=== PATIENT | female | born 1990 | race Caucasian/White ===

== ENCOUNTER → 2016-07-08 | Outpatient (CLI) | payer MEDICAID ==
--- NOTE | 2016-07-08 11:48 | US ---
EXAMINATION TYPE: US OB <= 14 wk fetus DATE OF EXAM: 07/08/2016 10:46 AM COMPARISON: NONE CLINICAL HISTORY: Confirm Dates Z36. G1 EXAM PERFORMED: Transabdominal (TA) EXAM MEASUREMENTS: GESTATIONAL AGE / DATING Physician Established: (11 weeks/1 day) EDC: 01/26/2017 Dates by LMP: (11 weeks/1 day) EDC: 01/26/2017 Dates by First Scan: today Dates by Current Scan for: (9 weeks/1 day) EDC: 02/09/2017 MATERNAL ANATOMY Uterus: 12.0 x 7.8 x 6.0 Right Ovary: 4.0 x 2.8 x 2.4cm with CL of preganancy Left Ovary: 2.7 x 2.7 x 2.1cm Post CDS / Adnexa: wnl Presence of free fluid: no Presence of corpus luteal cyst: in right ovary = 2.2 x 1.7 x 1.3cm Presence of subchorionic bleed: no GESTATION / SURVEY CRL: 2.4cm (9 weeks/1 day) Yolk Sac (normal less than 6mm): 3.1mm Heart Rate: 170 bpm Rhythm: Normal IUP: Viable IUP Date of LMP: 04/21/2016 Beta HcG (if available): NA TECHNOLOGIST IMPRESSION: Single, live, IUP, 9 weeks/1 day) EDC: 02/09/2017, HR 170bpm. Single live intrauterine gestation is confirmed as gestational sac, yolk sac, and pole are iden tified. No free fluid is seen in pelvic cul-de-sac. Both ovaries are identified. Within right ovary there is 2.2 cm oval hypoechoic lesion with periphera l vascularity felt to reflect corpus luteal cyst. No suspicious extraovarian adnexal masses are noted . IMPRESSION: Single live intrauterine gestation is confirmed, mean crown-rump length is 2.4 cm corresponding to 9 week 1 day old fetus.
== END | disposition home or self-care (01) ==
LOC: RADUSWWP 10:17
PROVIDERS: ATTEND Obstetrics & Gynecology
DX: Z36 Encounter for antenatal screening of mother (principal); Z3A.09 9 weeks gestation of pregnancy
CPT/HCPCS: 76801

== ENCOUNTER 2016-07-13 18:27 | Emergency (ER) | payer MEDICAID ==
[2016-07-13 18:53] VITALS: TEMP 98
[2016-07-13] MEDS ORDERED: PYRIDOXINE 100 MG/ML 1 ML VIAL IVP STA (20:00)
[2016-07-13] MEDS ORDERED: diphenhydrAMINE 50 MG/ML 1 ML VIAL IVP STA (20:00)
[2016-07-13] MEDS ORDERED: SODIUM CHLORIDE 0.9% 1,000 ML IV ONE (20:00)
--- NOTE | 2016-07-13 20:03 | ED ---
General Adult HPI - General Chief complaint: Abdominal Pain Stated complaint: 10 WEEKS PREG AND VOMITING, DIARRHEA Time Seen by Provider: 07/13/16 19:49 Source: patient, RN notes reviewed Mode of arrival: ambulatory Limitations: no limitations - History of Present Illness Initial comments: Patient is a 26-year-old female presents to the emergency room for reevaluation nausea, vomiting or diarrhea. Patient states she about 10 weeks . Patient states yesterday she began feeling ill. Patient states all last night she was vomiting. Patient states she vomited twice throughout the day today. Patient also states she had a couple episodes of diarrhea last night and this morning. Patient states she still feeling nauseous. Patient states she wants to be sure she is not dehydrated. Patient denies abdominal pain. Patient denies history of abdominal surgeries. Patient denies vaginal bleeding. Patient denies any vaginal discomfort. Patient denies chest pain, shortness of breath, headache, dizziness, fevers, chills. - Related Data Home Medications Medication Instructions Recorded Confirmed Tbz-Qhup-Dcyvf Acid 1 cap PO DAILY 07/13/16 07/13/16 [-U Capsule (formulary)] Allergies Allergy/AdvReac Type Severity Reaction Status Date / Time sulfamethoxazole AdvReac Rash/Hives Verified 07/13/16 19:54 [From Bactrim] trimethoprim [From Bactrim] AdvReac Rash/Hives Verified 07/13/16 19:54 Review of Systems ROS Statement: Those systems with pertinent positive or pertinent negative responses have been documented in the HPI. ROS Other: All systems not noted in ROS Statement are negative. Past Medical History Past Medical History: No Reported History History of Any Multi-Drug Resistant Organisms: None Reported Past Surgical History: No Surgical Hx Reported Past Psychological History: No Psychological Hx Reported Smoking Status: Never smoker Past Alcohol Use History: None Reported Past Drug Use History: None Reported General Exam - General Exam Comments Initial Comments: Sitting in exam room in no acute distress. Limitations: no limitations General appearance: alert, in no apparent distress Head exam: Present: atraumatic, normocephalic, normal inspection Eye exam: Present: normal appearance ENT exam: Present: normal exam Neck exam: Present: normal inspection Respiratory exam: Present: normal lung sounds bilaterally. Absent: respiratory distress Cardiovascular Exam: Present: regular rate, normal rhythm, normal heart sounds GI/Abdominal exam: Present: soft, normal bowel sounds. Absent: distended, tenderness, guarding, rebound, rigid Extremities exam: Present: normal inspection Back exam: Present: normal inspection Neurological exam: Present: alert, oriented X3, CN II-XII intact, normal gait Psychiatric exam: Present: normal affect, normal mood Skin exam: Present: warm, dry, intact, normal color. Absent: rash Course Vital Signs 07/13/16 18:51 Temperature 98 F Pulse Rate 103 H Respiratory 20 Rate Blood Pressure 125/72 O2 Sat by Pulse 97 Oximetry Medical Decision Making - Medical Decision Making Patient is a 26-year-old female presents emergency room for evaluation nausea, vomiting and diarrhea. Patient is . Patient is about 10 weeks . Patient states she is feeling much better after fluids and medications given. Patient states she feels better and would like to be discharged home. Patient does have a confirmed IUP from 07/08/16. Patient states she will follow up with her MANAGER RADIO. Return parameters discussed. Case discussed with Dr. Echevarria. - Lab Data Result diagrams: 07/13/16 20:05 07/13/16 20:05 Lab Results 07/13/16 07/13/16 Range/Units 20:05 20:05 WBC 7.5 (3.8-10.6) k/uL RBC 4.48 (3.80-5.40) m/uL Hgb 12.6 (11.4-16.0) gm/dL Hct 38.1 (34.0-46.0) % MCV 85.0 (80.0-100.0) fL MCH 28.2 (25.0-35.0) pg MCHC 33.2 (31.0-37.0) g/dL RDW 12.6 (11.5-15.5) % Plt Count 240 (150-450) k/uL Neutrophils % 80 % Lymphocytes % 13 % Monocytes % 5 % Eosinophils % 0 % Basophils % 0 % Neutrophils # 6.0 (1.3-7.7) k/uL Lymphocytes # 1.0 (1.0-4.8) k/uL Monocytes # 0.3 (0-1.0) k/uL Eosinophils # 0.0 (0-0.7) k/uL Basophils # 0.0 (0-0.2) k/uL Sodium 136 L (137-145) mmol/L Potassium 4.7 (3.5-5.1) mmol/L Chloride 105 (98-107) mmol/L Carbon Dioxide 20 L (22-30) mmol/L Anion Gap 11 mmol/L BUN 7 (7-17) mg/dL Creatinine 0.44 L (0.52-1.04) mg/dL Est GFR (MDRD) Af Amer >60 (>60 ml/min/1.73 sqM) Est GFR (MDRD) Non-Af >60 (>60 ml/min/1.73 sqM) Glucose 93 (74-99) mg/dL Calcium 8.7 (8.4-10.2) mg/dL Magnesium 2.0 (1.6-2.3) mg/dL Total Bilirubin 0.9 (0.2-1.3) mg/dL AST 40 H (14-36) U/L ALT 26 (9-52) U/L Alkaline Phosphatase 36 L (38-126) U/L Total Protein 7.4 (6.3-8.2) g/dL Albumin 4.0 (3.5-5.0) g/dL Disposition Clinical Impression: Hyperemesis gravidarum Disposition: HOME SELF-CARE Condition: Good Instructions: Hyperemesis Gravidarum (ED) Additional Instructions: Drink plenty fluids. Please follow-up with MANAGER RADIO in 1-2 days for reevaluation. If any new symptom arises or symptoms worsen, return to ER as soon as possible. Referrals: Raudel Hanna MD [Primary Care Provider] - 1-2 days Time of Disposition: 20:56
[2016-07-13 20:20] LABS: Basophils % (A) 0 %; CH 28.9; CHCM 34.2; Eosinophils % (A) 0 %; HCT 38.1 % (34.0-46.0); HDW 2.31; HGB 12.6 gm/dL (11.4-16.0); Luc # (Auto) 0.17; Luc % (Auto) 2; Lymphocytes % (A) 13 %; MCH 28.2 pg (25.0-35.0); MCHC 33.2 g/dL (31.0-37.0); Mean Platelet Volume 6.9; Monocytes # (A) 0.3 k/uL (0-1.0); Monocytes % (A) 5 %; Neutrophils % (A) 80 %; RBC 4.48 m/uL (3.80-5.40); RDW 12.6 % (11.5-15.5); WBC 7.5 k/uL (3.8-10.6); WBC (Perox) 7.55
[2016-07-13 20:29] LABS: ALT 26 U/L (9-52); AST 40 U/L (14-36); Alkaline Phosphatase 36 U/L (38-126); Anion Gap 11 mmol/L; Blood Urea Nitrogen 7 mg/dL (7-17); Calcium 8.7 mg/dL (8.4-10.2); Carbon Dioxide 20 mmol/L (22-30); Chloride 105 mmol/L (98-107); Glucose 93 mg/dL (74-99); Non-African American GFR(MDRD) >60 (>60 ml/min/1.73 sqM); Sodium 136 mmol/L (137-145); Total Bilirubin 0.9 mg/dL (0.2-1.3); Total Protein 7.4 g/dL (6.3-8.2)
[2016-07-13 20:37] LABS: Potassium 4.7 mmol/L (3.5-5.1)
[2016-07-13 21:13] VITALS: BP 112/56; PULSE 80; RESP 16
== END 2016-07-13 21:12 | disposition home or self-care (01) ==
LOC: EC 18:27
DX: O21.0 Mild hyperemesis gravidarum (principal); Z88.1 Allergy status to other antibiotic agents; Z88.2 Allergy status to sulfonamides
CPT/HCPCS: 36415; 80053; 83735; 85025; 99284; 96374; 96375; 96361; J1200; J3415

== ENCOUNTER → 2016-07-14 | Outpatient (CLI) | payer MEDICAID ==
[2016-07-14 14:00] LABS: CH 29.1; HCT 36.9 % (34.0-46.0); HGB 12.5 gm/dL (11.4-16.0); MCHC 33.8 g/dL (31.0-37.0); Mean Platelet Volume 7.8; RBC 4.29 m/uL (3.80-5.40); RDW 12.6 % (11.5-15.5); WBC 5.5 k/uL (3.8-10.6)
[2016-07-14 14:24] LABS: Glucose 93 mg/dL (74-99); Non-African American GFR(MDRD) >60 (>60 ml/min/1.73 sqM)
[2016-07-14 14:55] LABS: Hepatitis B Surface Ag Index 0.07
[2016-07-15 07:10] LABS: HIV-1/HIV-2 Ab Screen NONREAC (NON REAC)
== END | disposition home or self-care (01) ==
LOC: LABWHC1 13:18
PROVIDERS: ATTEND Obstetrics & Gynecology
DX: Z34.01 Encounter for supervision of normal first pregnancy, first trimester (principal); R53.83 Other fatigue
CPT/HCPCS: 36415; 82565; 82947; 85027; 86762; 86780; 86850; 86900; 86901; 87340; 87389

== ENCOUNTER → 2016-09-16 | Outpatient (CLI) | payer MEDICAID ==
--- NOTE | 2016-09-16 13:35 | US ---
EXAMINATION TYPE: US OB anatomy transabd DATE OF EXAM: 09/16/2016 9:37 AM COMPARISON: NONE HISTORY: Large for dates Second Trimester 036.62X0 TECHNIQUE: OBTA EXAM MEASUREMENTS: GESTATIONAL AGE / DATING Physician Established: (19 weeks/1 days) EDC: 02/09/2017 Dates by LMP: (18 weeks/2 days) EDC: 02/03/2017 Dates by First Scan: (19 weeks/1 days) EDC: 02/09/2017 Dates by Current Scan for: (20 weeks/0 days) EDC: 02/03/2017 SURVEY IUP: Single PLACENTA: Anterior PREVIA: No previa DEANGELO: 13.5 cm Normal CERVICAL LENGTH (transabdominal: norm > 3.0cm): 3.2 cm BIOMETRY PRESENTATION: Vertex LIE: Longitudinal BPD: 4.5 cm 19 weeks / 5 days HC: 16.4 cm 19 weeks / 1 days AC: 14.6 cm 20 weeks / 0 days FL: 3.4 cm 20 weeks / 5 days ESTIMATED WEIGHT IN GRAMS: 334 grams ESTIMATED WEIGHT IN LBS/OZS: 0 lbs. 12 oz. WEIGHT PERCENTAGE BASED ON ESTABLISHED DATE: 93 % HC/AC: 1.1 Normal FL/AC: 23 Normal HEART RATE: 153 bpm RHYTHM: Normal ANATOMY SEEN (within normal limits): * Lateral Vent (< 1 cm) 0.4 cm * Cisterna Magna (< 1.1 cm) 0.3 cm * Nuchal Fold (< 0.6 cm) 0.2 cm * Cerebellum (varies with age) 1.9 cm Choroid Plexus (bilateral) Midline Falx Cavus Septi Pellucidi Four Chamber Heart Outflow tracts: LVOT/RVOT Stomach Situs Nose / Lips Diaphragm Kidneys (bilateral) Bladder Cord Insert Three Vessel Cord Arms (bilateral) Legs (bilateral) ANATOMY NOT SEEN:second tech check was CF Longitudinal Spine Transverse Spine Spine down - patient is coming back for additional images October 02 @ 1220 IMPRESSION: Single viable intrauterine corresponding to ultrasound age 20 weeks 0 days with estimated d ate of delivery 03 February 2017 by today's exam, limited survey
== END | disposition home or self-care (01) ==
LOC: RADUSWWP 08:49
PROVIDERS: ATTEND Obstetrics & Gynecology
DX: O36.62X0 Maternal care for excessive fetal growth, second trimester, not applicable or unspecified (principal); Z3A.19 19 weeks gestation of pregnancy
CPT/HCPCS: 76811

== ENCOUNTER → 2016-10-02 | Outpatient (CLI) | payer MEDICAID ==
--- NOTE | 2016-10-02 15:21 | US ---
EXAMINATION TYPE: US OB Call Back DATE OF EXAM: 10/02/2016 COMPARISON: Prior ultrasound September 16, 2016. CLINICAL HISTORY: OB CallBack. here to complete out anatomy scan; no issues per patient GESTATIONAL AGE / DATING Dates by Initial Survey Scan: (21 weeks/3 days) EDC: 02/09/2017 HEART RATE: 143 bpm RHYTHM: Normal ANATOMY SEEN (second anatomic survey look): Longitudinal Spine: Transverse Spine: Patient returned for long and trans spine imaging; appears wnl. Second Look imaging of the spine in 2 planes is felt within normal limits during real-time scanning a nd on still images saved IMPRESSION: As above
== END | disposition home or self-care (01) ==
LOC: RADUSWWP 12:16
PROVIDERS: ATTEND Obstetrics & Gynecology
DX: Z36 Encounter for antenatal screening of mother (principal); Z3A.21 21 weeks gestation of pregnancy

== ENCOUNTER → 2016-10-30 | Outpatient (CLI) | payer MEDICAID ==
[2016-10-30 10:07] LABS: CH 27.8; CHCM 33.2; HCT 37.2 % (34.0-46.0); HDW 2.38; HGB 12.9 gm/dL (11.4-16.0); MCH 29.2 pg (25.0-35.0); MCHC 34.7 g/dL (31.0-37.0); MCV 84.2 fL (80.0-100.0); Mean Platelet Volume 7.7; RBC 4.41 m/uL (3.80-5.40); RDW 13.3 % (11.5-15.5); WBC 10.3 k/uL (3.8-10.6)
== END | disposition home or self-care (01) ==
LOC: LABWHC1 08:53
PROVIDERS: ATTEND Obstetrics & Gynecology
DX: Z34.02 Encounter for supervision of normal first pregnancy, second trimester (principal)
CPT/HCPCS: 36415; 82950; 85027

== ENCOUNTER → 2016-11-05 | Outpatient (CLI) | payer MEDICAID ==
[2016-11-05 12:18] LABS: Glucose 3 Hour, Gest 97 mg/dL
== END | disposition home or self-care (01) ==
LOC: LABWHC1 08:01
PROVIDERS: ATTEND Obstetrics & Gynecology
DX: O24.419 Gestational diabetes mellitus in pregnancy, unspecified control (principal); Z3A.00 Weeks of gestation of pregnancy not specified
CPT/HCPCS: 36415; 82951; 82952

== ENCOUNTER → 2017-01-07 | Outpatient (CLI) | payer MEDICAID ==
--- NOTE | 2017-01-07 15:19 | US ---
EXAMINATION TYPE: US OB anatomy transabd DATE OF EXAM: 01/07/2017 COMPARISON: US HISTORY: Large for dates O36.63X0 LGA TECHNIQUE: Transabdominal (TA) EXAM MEASUREMENTS: GESTATIONAL AGE / DATING Physician Established: (35 weeks/2 days) EDC: 02/09/2017 Dates by LMP: (36 weeks/1 days) EDC: 02/03/2017 Dates by First Scan: (35 weeks/2 days) EDC: 02/09/2017 Dates by Current Scan for: (34 weeks/4 days) EDC: 02/14/2017 SURVEY IUP: Single PLACENTA: Anterior PREVIA: No previa DEANGELO: 10.6 cm Normal CERVICAL LENGTH (transabdominal: norm > 3.0cm): 3.0 cm BIOMETRY PRESENTATION: Vertex BPD: 8.5 cm 34 weeks / 2 days HC: 31.3 cm 35 weeks / 1 days AC: 31.4 cm 35 weeks / 2 days FL: 6.8 cm 34 weeks / 6 days ESTIMATED WEIGHT IN GRAMS: 2581 grams ESTIMATED WEIGHT IN LBS/OZS: 5 lbs. 11 oz. WEIGHT PERCENTAGE BASED ON ESTABLISHED DATE: 41 % HC/AC: 1.0 Normal FL/AC: 22 Normal HEART RATE: 137 bpm RHYTHM: Normal ANATOMY SEEN (within normal limits): * Lateral Vent (< 1 cm) 0.7 cm Midline Falx Cavus Septi Pellucidi Four Chamber Heart Stomach Situs Nose / Lips Diaphragm Kidneys (bilateral) Bladder Cord Insert Three Vessel Cord Longitudinal Spine Transverse Spine ANATOMY NOT SEEN: * Cisterna Magna (< 1.1 cm) cm * Nuchal Fold (< 0.6 cm) cm * Cerebellum (varies with age) cm Choroid Plexus (bilateral) Outflow tracts: LVOT/RVOT Arms (bilateral) Legs (bilateral) Single, viable IUP/ Growth parameters in 41st percentile, anatomy visualized appeared wnl IMPRESSION: Single, viable IUP/ Growth parameters in 41st percentile, anatomy visualized appeared wnl
== END | disposition home or self-care (01) ==
LOC: RADUSWWP 14:20
PROVIDERS: ATTEND Obstetrics & Gynecology
DX: O36.63X0 Maternal care for excessive fetal growth, third trimester, not applicable or unspecified (principal); Z3A.34 34 weeks gestation of pregnancy
CPT/HCPCS: 76811

== ENCOUNTER 2017-02-03 10:00 | Inpatient (IN) | payer MEDICAID ==
[2017-02-03 12:59] LABS: Basophils % (A) 0 %; CH 28.3; CHCM 32.5; Eosinophils # (A) 0.1 k/uL (0-0.7); Eosinophils % (A) 1 %; HCT 38.8 % (34.0-46.0); HDW 2.35; HGB 12.6 gm/dL (11.4-16.0); Luc # (Auto) 0.29; Luc % (Auto) 3; Lymphocytes # (A) 1.7 k/uL (1.0-4.8); Lymphocytes % (A) 17 %; MCH 28.5 pg (25.0-35.0); MCHC 32.5 g/dL (31.0-37.0); MCV 87.6 fL (80.0-100.0); Mean Platelet Volume 9.3; Monocytes # (A) 0.5 k/uL (0-1.0); Monocytes % (A) 5 %; Neutrophils # (A) 7.3 k/uL (1.3-7.7); Neutrophils % (A) 74 %; RBC 4.43 m/uL (3.80-5.40); RDW 14.2 % (11.5-15.5); WBC 9.8 k/uL (3.8-10.6); WBC (Perox) 10.29
[2017-02-03 13:14] LABS: ALT 42 U/L (9-52); AST 24 U/L (14-36); Blood Urea Nitrogen 5 mg/dL (7-17); LDH 337 U/L (313-618); Non-African American GFR(MDRD) >60 (>60 ml/min/1.73 sqM); Uric Acid 5.9 mg/dL (3.7-7.4)
[2017-02-03 13:33] LABS: Appearance,Urine Cloudy (Clear); Bacteria,Urine Rare /hpf; Bilirubin,Urine Negative (Negative); Glucose,Urine (UA) Negative (Negative); Ketones,Urine 1+ (Negative); Leukocyte Esterase,Urine Negative (Negative); Mucus,Urine Rare /hpf; Nitrite,Urine Negative (Negative); Particle Count 2242; Protein,Urine Negative (Negative); Specific Gravity,Urine 1.003 (1.001-1.035); Squamous Epithelial Cell,Urine 3 /hpf (0-4); UA Billing (MACRO vs. MICRO) MICRO; Urobilinogen,Urine <2.0 mg/dL (<2.0); WBC,Urine <1 /hpf (0-5)
[2017-02-03] MEDS ORDERED: DINOPROSTONE 10 MG INSERT.ER VAGINAL ONE (13:40)
[2017-02-03 14:47] VITALS: BMI 33.2
[2017-02-03] MEDS ORDERED: BUTORPHANOL 1 MG/ML 1 ML VIAL IV PRN ×2 (15:31→17:19)
[2017-02-03] MEDS ORDERED: ZOLPIDEM 5 MG TAB PO PRN (17:16)
--- NOTE | 2017-02-03 17:28 | P.HPOB ---
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 She was noted to be susan every couple minutes but also was noted to have some elevated blood pressures. She denies any headaches or blurry vision. She has noticed a little bit of dizziness. She has been having some significant swelling in her feet and her hands more recently. She denies any rupture of membranes. Her care has been uncomplicated up until this point. Her workup in triage was negative for preeclampsia. Urine protein was negative. All of her labs were is within normal limits. She did have blood pressures as high as 160s over 100s. labs: GC/chlamydia-negative HIV-nonreactive Random glucose-93 Hepatitis B surface antigen-negative The globe and-12.5 Syphilis antibody-nonreactive Rubella-low positive Blood type-AB+ Antibody screen-negative Obstetrical ultrasound-normal anatomy One hour Glucola-142 Three-hour Glucola-within normal limits Group B streptococcus-positive Obstetrical history: This is her first Gynecologic history: She does have a history of chlamydia treated in 2007 Social history: She works as an RN at [employer] Review of Systems Constitutional: Denies chills, Denies fever Eyes: denies blurred vision, denies pain Ears, nose, mouth and throat: Denies headache, Denies sore throat Cardiovascular: Denies chest pain, Denies shortness of breath Respiratory: Denies cough Gastrointestinal: Reports abdominal pain (Irregular contractions), Denies nausea , Denies vomiting Genitourinary: Reports pelvic pain, Reports Musculoskeletal: Reports low back pain Musculoskeletal: bilateral: ankle swelling, hand swelling Neurological: Denies numbness, Denies weakness Psychiatric: Denies anxiety, Denies depression Past Medical History Past Medical History: No Reported History History of Any Multi-Drug Resistant Organisms: None Reported, MRSA Date of last positivie culture/infection: 2007 MDRO Source:: left leg wound Additional Past Surgical History / Comment(s): pt states had sinus surgery in 2006 Past Psychological History: No Psychological Hx Reported Smoking Status: Former smoker Past Alcohol Use History: None Reported Past Drug Use History: None Reported - Past Family History Father History Unknown: Yes Family Medical History: Hypertension Medications and Allergies Home Medications Medication Instructions Recorded Confirmed Type Gvk-Bhrv-Ptori Acid 1 cap PO DAILY 07/13/16 02/03/17 History [-U Capsule (formulary)] Allergies Allergy/AdvReac Type Severity Reaction Status Date / Time sulfamethoxazole AdvReac Rash/Hives Verified 02/03/17 15:30 [From Bactrim] trimethoprim [From Bactrim] AdvReac Rash/Hives Verified 02/03/17 15:30 Exam Osteopathic Statement: *. No significant issues noted on an osteopathic structural exam other than those noted in the History and Physical/Consult. - Vital Signs Vital signs: Vital Signs Temp Pulse Resp BP 02/03/17 14:47 98.2 F 77 16 146/84 02/03/17 14:38 98.2 F 77 16 146/84 02/03/17 10:18 97 F L 81 18 155/87 Intake and Output 02/03/17 02/03/17 02/03/17 06:59 14:59 22:59 Other: # Voids 1 Weight 96.162 kg Patient Weight 02/04/17 06:59 Weight 96.162 kg HEENT: Within normal limits Heart: Regular rate and rhythm Lungs: Clear to auscultation bilaterally Abdomen: Cervix: Closed/70%/-2 station heart tones: Reactive Contractions: Every 2-3 minutes Extremities: 1-2+ pitting edema in her lower extremities and puffiness noted in her hands. Results Result Diagrams: 02/03/17 12:48 02/03/17 12:48 Abnormal Lab Results - Last 24 Hours (Table) 02/03/17 02/03/17 Range/Units 12:35 12:48 BUN 5 L (7-17) mg/dL Urine Appearance Cloudy H (Clear) Urine Ketones 1+ H (Negative) Urine Bacteria Rare H (None) /hpf Urine Mucus Rare H (None) /hpf Assessment and Plan (1) 39 weeks gestation of Status: Acute (2) Gestational hypertension affecting first Status: Acute Plan: Plan is admission for Cervidil cervical ripening followed by oxytocin induction of labor in the morning. Will monitor blood pressures through the night. If they are significantly high, will need to add antihypertensive.
[2017-02-03] MEDS ORDERED: AMPICILLIN 2,000 MG in SODIUM CHLORIDE 0.9% 100 ML IVPB STA (17:39)
[2017-02-03] MEDS ORDERED: ONDANSETRON 4 MG/2 ML VIAL IVP STA (19:36)
[2017-02-03] MEDS ORDERED: AMPICILLIN 1,000 MG in SODIUM CHLORIDE 0.9% 50 ML IVPB SCH (22:00)
[2017-02-04] MEDS: AMPICILLIN 1,000 MG in SODIUM CHLORIDE 0.9% 50 ML IVPB SCH ×4 (00:43→13:38)
[2017-02-04] MEDS ORDERED: OXYTOCIN 10 UNIT/ML 1 ML VIAL IM PRN (05:17)
[2017-02-04] MEDS ORDERED: METHYLERGONOVINE 0.2 MG/ML 1 ML AMP IM PRN (05:17)
[2017-02-04] MEDS ORDERED: LIDOCAINE 1% 20 ML VIAL (10MG/ML) FOR IV START INTRADERMA PRN (05:17)
[2017-02-04] MEDS ORDERED: OXYTOCIN 20 UNITS/1000 ML NS 1,000 ML IV SCH ×2 (05:17→13:44)
[2017-02-04] MEDS ORDERED: CARBOPROST TROMETHAMINE 250 MCG/ML 1 ML AMP IM PRN (05:17)
[2017-02-04] MEDS ORDERED: LIDOCAINE 1% (PF) 10 MG/ML (30 ML SDV) SQ PRN (05:17)
[2017-02-04] MEDS ORDERED: TERBUTALINE 1 MG/ML VIAL SQ PRN (05:17)
[2017-02-04] MEDS ORDERED: AMPICILLIN 2,000 MG in SODIUM CHLORIDE 0.9% 100 ML IVPB STA (05:19)
[2017-02-04] MEDS: LACTATED RINGERS 1,000 ML IV SCH ×2 (06:01→14:11)
--- NOTE | 2017-02-04 08:34 | P.PN ---
Progress Note - Text Progress Note Date: 02/04/17 The patient did well last night. She was feeling mild irregular contractions through the night. She did have a couple elevated blood pressures at around 2145 up to 191/89 but it came down on its own within a half an hour to 158/78. She denied any headaches or blurry vision. She did state she has been having nausea and some vomiting almost every night for the last week. Once she vomits she feels better in the symptoms go away. Currently she is feeling a little bit stronger contractions since the Pitocin has been started. Vital signs currently blood pressure is 145/93. Fundus is nontender. Cervix is closed/70%/ -2 station. Impression is intrauterine at 39-2/7 weeks, gestational hypertension. Plan is to continue with oxytocin this morning. Still no change in her cervix by noontime, may consider section at that time. We'll continue to monitor blood pressures closely.
--- NOTE | 2017-02-04 08:38 | P.MSEPDOC ---
Presenting Problems - Arrival Data Date of Arrival on Unit: 02/03/17 Time of Arrival on Unit: 14:18 Mode of Transport: Ambulatory - Complaint OB-Reason for Admission/Chief Complaint: Observation/Evaluation Comment: pt arrived c/o cramping and questionable labor. states shes working over on [employer] and had been having cramping they sent her over her for evulation Medical History - Information : 1 Para: 0 Term: 0 : 0 Abortions: Spontaneous or Elective: 0 Number of Living Children: 0 - Gestational Age Gestational Age by ELENA (wks/days): 39 Weeks and 1 Days - History Complications: GBS+ Review of Systems - Review of Systems Constitutional: No problems Breast: No problems ENT: No problems Cardiovascular: No problems Respiratory: No problems Gastrointestinal: No problems Genitourinary: No problems Musculoskeletal: No problems Neurological: No problems Skin: No problems Vital Signs - Temperature Temperature: 98.2 F Temperature Source: Oral - Pulse Right Brachial Pulse Rate: 77 Pulse Assessment Method: Automatic Cuff - Respirations Respiratory Rate: 16 Oxygen Delivery Method: Room Air - Blood Pressure Right Arm Blood Pressure: 146/84 Blood Pressure Mean: 104 Blood Pressure Source: Automatic Cuff Medical Screen Scoring (Pre) - Cervical Exam Dilation: 0 cm = 0 Membranes: Intact - Uterine Contractions Frequency: > or = 36 weeks =2 Duration: > 40 seconds = 2 Intensity: N/A - Maternal Vital Signs Maternal Temperature: N/A Maternal Blood Pressure: Systolic >139 = 2 Signs of Preeclampsia: N/A Maternal Respirations: N/A - Maternal Trauma Maternal Trauma: N/A - Assessment Baseline FHR: 130 Heart Rate - NICHD Category: Category I (Normal) = 0 NST: Reactive Position: N/A Station: N/A - Total Score Total Score (Pre): 6 Physician Notification (Post) - Physician Notified Physician Notified Date: 02/03/17 Physician Notified Time: 11:50 Physician/Practitioner Notified:: dr fry Spoke With: dr fry New Order Received: Yes - Notification Comment Comment: pt admitted for cervidel tonight and induction in am Disposition - Disposition OB Disposition: Admit Transferred to:: st 10 I agree with the RN Medical Screening Exam: Yes Risk & Benefit of care provided described in d/c instruction: Yes Diagnosis: GESTATIONAL HTN W/O SIGNIFICANT PROTEINURIA, THIRD TRIMESTER
[2017-02-04] MEDS ORDERED: AMPICILLIN 1,000 MG in SODIUM CHLORIDE 0.9% 50 ML IVPB SCH (10:00)
[2017-02-04] MEDS ORDERED: ceFAZolin 2 GM in SODIUM CHLORIDE 0.9% 100 ML IVPB ONE (11:55)
[2017-02-04] MEDS ORDERED: CITRIC ACID-SODIUM CITRATE 15 ML CUP PO ONE (11:55)
[2017-02-04 12:10] LABS: INR 0.9 (<1.2); Partial Thromboplastin Time 22.6 sec (22.0-30.0); Prothrombin Time 9.5 sec (9.0-12.0)
[2017-02-04] MEDS ORDERED: NALBUPHINE 10 MG/ML AMPUL ONE (12:18)
[2017-02-04] MEDS ORDERED: OXYTOCIN 10 UNIT/ML 1 ML VIAL ONE (12:18)
[2017-02-04] MEDS ORDERED: KETOROLAC 30 MG/ML 1 ML VIAL ONE ×2 (12:18)
--- NOTE | 2017-02-04 13:10 | P.OP ---
Date of Procedure: 02/04/17 Preoperative Diagnosis: 1. Intrauterine at 39-2/7 weeks. 2. Failure to progress. 3. Gestational hypertension without proteinuria. Postoperative Diagnosis: Same Procedure(s) Performed: Primary low transverse section Anesthesia: spinal (Duramorph) Surgeon: Ce Anderson Loading Manager #1: Lina Akhtar Estimated Blood Loss (ml): 600 Pathology: other (Placenta) Condition: stable Disposition: floor Indications for Procedure: This is a 26 year old female 1 para 0 who initially presented at 39 and one sevenths weeks with complaints of contractions. In triage she was noted to be susan however her blood pressures were elevated. Labs were drawn and urine protein was negative. All lab work was normal. She did have blood pressures that would occasionally be high and then come back to normal. In light of this finding she was admitted for Cervidil cervical ripening followed by oxytocin induction of labor. She underwent Cervidil cervical ripening last night and no change in her cervix was noted this morning. She was started on oxytocin and continued for approximately 4 hours with no change in her cervix. At this point the decision was made to proceed with section secondary to failure to progress. She has had isolated elevated blood pressures but they have returned to baseline without any medication. I have discussed the risks, benefits, and alternative therapies for the above- mentioned procedure and for both sedation/anesthesia as well as necessary blood products administration, if indicated, as they pertain to this patient. The patient has indicated her understanding and acceptance of the risks and procedures discussed. Operative Findings: A viable female is noted in the vertex presentation with scores of 8 at 1 minute and 9 at 5 minutes and infant weight of 7 lbs. 4 oz. Nuchal cord times one was noted and thin meconium was noted. Normal uterus tubes and ovaries are noted. Description of Procedure: The patient is taken to the operating room where she is placed in the dorsal supine position with leftward tilt after spinal Duramorph anesthesia is given. She is prepped and draped in the normal sterile fashion. Skin was tested and found to be adequately anesthetized. A Pfannenstiel skin incision was made with a scalpel. A second knife was used to carry the incision down to the underlying layer of fascia. The fascia was nicked in the midline with a scalpel and then extended laterally bilaterally with Wallis scissors. The anterior lip of the fascia was grasped with 2 Isabel clamps and then dissected off the underlying rectus muscle in the midline with Wallis scissors. The inferior aspect of the fascial incision was grasped with 2 Isabel clamps and dissected off the underlying rectus muscle and the midline with Wallis scissors. Next the peritoneum layer was tented up with 2 hemostats and then entered sharply with the scalpel. The incision is extended superiorly and inferiorly with Metzenbaum scissors. Next a DeLee retractor is placed. The vesicouterine peritoneum is entered sharply with Metzenbaum scissors and extended laterally bilaterally with Metzenbaum scissors and then the bladder flap is pushed inferiorly. The lower uterine segment is incised in transverse fashion with the scalpel and then bluntly entered with a hemostat. Thin meconium fluid is noted. The incision was then extended laterally bilaterally with 2 fingers. Next the infant's head is delivered through the incision. Nose and mouth are bulb suctioned. The remainder of the infant is easily delivered and placed on mother's abdomen. Cord is clamped and cut. Infant is taken to warmer by nursing staff. Uterine fundus is gently massaged and placenta is delivered manually. Uterus is exteriorized and cleared of all clots and debris. Uterine incision is closed with 0 Vicryl suture in a running locked fashion. A second layer of 0 Vicryl suture is used in a running fashion for hemostasis. Once adequate hemostasis as assured, the vesicouterine peritoneum is reapproximated with 2-0 Vicryl suture in a running fashion. Posterior cul-de-sac is suctioned of all clots and debris. Uterus is returned to the abdomen. Incision is noted to be hemostatic. Peritoneal layer is closed with 0 Vicryl suture in a running fashion. Muscle layer is reapproximated with 0 Vicryl suture in interrupted fashion. Fascia layer is then closed with 0 PDS suture with 2 sutures meeting in the midline and the knots buried in either side and in the midline. The subcutaneous tissue was then closed with 2-0 Vicryl suture. Skin layer was then closed with edgar. All sponge and needle counts are correct. The patient is taken to recovery room in stable condition.
[2017-02-04] MEDS ORDERED: Acetaminophen-Codeine 300-30mg TAB PO PRN (13:44)
[2017-02-04] MEDS ORDERED: NALOXONE 0.4 MG/ML 1 ML VIAL IV PRN (13:44)
[2017-02-04] MEDS ORDERED: ZOLPIDEM 5 MG TAB PO PRN (13:44)
[2017-02-04] MEDS ORDERED: diphenhydrAMINE 50 MG CAP PO PRN (13:44)
[2017-02-04] MEDS ORDERED: diphenhydrAMINE 50 MG/ML 1 ML VIAL IVP PRN ×2 (13:44)
[2017-02-04] MEDS ORDERED: MEASLES-MUMPS-RUBELLA VACC/PF 12,500 UNIT/0.5 ML VIAL SQ ONE (13:44)
[2017-02-04] MEDS ORDERED: ACETAMINOPHEN TAB 325 MG TAB PO PRN (13:44)
[2017-02-04] MEDS ORDERED: ONDANSETRON 4 MG/2 ML VIAL IVP PRN (13:44)
[2017-02-04] MEDS ORDERED: diphenhydrAMINE 25 MG CAP PO PRN (13:44)
[2017-02-04] MEDS ORDERED: METOCLOPRAMIDE 5 MG/ML 2 ML VIAL IVP PRN (13:44)
[2017-02-04] MEDS ORDERED: LANOLIN CREAM 5 GM TUBE TOPICAL PRN (13:44)
[2017-02-04] MEDS ORDERED: LACTATED RINGERS 1,000 ML IV SCH (13:44)
[2017-02-04] MEDS: KETOROLAC 30 MG/ML 1 ML VIAL IVP PRN (17:52)
[2017-02-04] MEDS: SENNOSIDES-DOCUSATE SODIUM 1 EACH TAB PO SCH (20:08)
[2017-02-05] MEDS: KETOROLAC 30 MG/ML 1 ML VIAL IVP PRN ×3 (00:12→12:24)
[2017-02-05 06:22] LABS: Basophils % (A) 0 %; CH 29.3; CHCM 34.1; Eosinophils # (A) 0.1 k/uL (0-0.7); Eosinophils % (A) 1 %; HCT 34.3 % (34.0-46.0); HDW 2.36; HGB 11.3 gm/dL (11.4-16.0); Luc # (Auto) 0.28; Luc % (Auto) 2; Lymphocytes # (A) 1.7 k/uL (1.0-4.8); Lymphocytes % (A) 13 %; MCH 28.4 pg (25.0-35.0); MCHC 32.9 g/dL (31.0-37.0); MCV 86.4 fL (80.0-100.0); Mean Platelet Volume 11.1; Monocytes # (A) 0.7 k/uL (0-1.0); Monocytes % (A) 5 %; Neutrophils % (A) 79 %; RBC 3.97 m/uL (3.80-5.40); RDW 15.4 % (11.5-15.5); WBC 12.8 k/uL (3.8-10.6); WBC (Perox) 12.69
[2017-02-05] MEDS: SENNOSIDES-DOCUSATE SODIUM 1 EACH TAB PO SCH ×2 (07:42→22:55)
--- NOTE | 2017-02-05 10:03 | P.PN ---
Progress Note - Text Date: 02/05/2017 Time: 706 The patient is status post section Vital signs stable VAS: 0-10 Patient has no complaints of pain. The patient incurred some minimal itching yesterday, this itching is now subsiding. Pain meds to be managed by service.
--- NOTE | 2017-02-05 10:24 | P.PNOBGPC ---
Subjective - Subjective Principal diagnosis: Status post primary section postoperative day #1 Interval history: Patient is doing well. She is ambulating. She is passing flatus but no bowel movement yet. She has urinated. She is attempting to breast-feed. Lochia is decreasing. Patient reports: Reports appetite normal, Reports voiding normally, Reports pain well controlled, Reports ambulating normally [place]: doing well Objective - Vital Signs Latest vital signs: Vital Signs Temp Pulse Resp BP Pulse Ox 02/05/17 07:47 98.3 F 81 16 124/83 02/05/17 04:00 98.4 F 85 13 138/78 02/05/17 00:00 98.4 F 75 15 134/77 02/04/17 20:10 98.0 F 83 15 141/95 96 02/04/17 16:00 98.4 F 74 14 138/83 97 02/04/17 15:07 97.6 F 64 14 131/84 98 02/04/17 14:37 64 14 134/70 98 02/04/17 14:07 61 14 126/63 97 02/04/17 13:54 53 L 14 124/59 96 02/04/17 13:39 56 L 14 125/60 96 02/04/17 13:25 59 L 14 130/59 96 02/04/17 13:07 97.2 F L 64 16 123/69 98 Intake and Output 02/04/17 02/05/17 02/05/17 22:59 06:59 14:59 Intake Total 1000 Output Total 900 350 Balance 1000 -900 -350 Intake: Intake, IV Titration 1000 Amount Oxytocin 20 Units/1000 ml 1000 Ns 1,000 ml @ Per Protocol IV .Q0M [facility] Rx#: [id number] Output: Urine 900 350 Uretheral (Bell) 650 Other: # Voids 1 1 - Exam Extremities: Present: normal. Absent: tenderness Abdomen: Present: normal appearance, soft (Positive bowel sounds 4). Absent: distention, tenderness Incision: Present: normal, dry, intact. Absent: erythematous - Labs Labs: Abnormal Lab Results - Last 24 Hours (Table) 02/05/17 Range/Units 06:10 WBC 12.8 H (3.8-10.6) k/uL Hgb 11.3 L (11.4-16.0) gm/dL Neutrophils # 10.0 H (1.3-7.7) k/uL Assessment and Plan (1) 39 weeks gestation of Current Visit: Yes Status: Acute Code(s): Z3A.39 - 39 WEEKS GESTATION OF SNOMED Code(s): 51355541 (2) Gestational hypertension affecting first Current Visit: Yes Status: Acute Code(s): O13.9 - GESTATIONAL HTN W/O SIGNIFICANT PROTEINURIA, UNSP TRIMESTER SNOMED Code(s): 31864269 (3) delivery delivered Narrative/Plan: Impression is status post primary section postoperative day #1. Plan is to continue with postoperative and care. Her blood pressures have come down into the normal range since her . Current Visit: Yes Status: Acute Code(s): O82 - ENCOUNTER FOR DELIVERY WITHOUT INDICATION SNOMED Code(s): 867916074
[2017-02-05] MEDS: IBUPROFEN 600 MG TAB PO PRN (18:25)
[2017-02-06] MEDS: IBUPROFEN 600 MG TAB PO PRN ×3 (00:21→12:29)
[2017-02-06] MEDS: Acetaminophen-Codeine 300-30mg TAB PO PRN ×2 (02:57→08:05)
[2017-02-06] MEDS: SENNOSIDES-DOCUSATE SODIUM 1 EACH TAB PO SCH (08:08)
--- NOTE | 2017-02-06 08:38 | P.DS ---
Providers Date of admission: 02/03/17 13:35 Expected date of discharge: 02/06/17 Attending physician: Ce Anderson Primary care physician: Stated None - Discharge Diagnosis(es) (1) 39 weeks gestation of Current Visit: Yes Status: Acute (2) Gestational hypertension affecting first Current Visit: Yes Status: Acute (3) delivery delivered Current Visit: Yes Status: Acute Hospital Course: This is a 26-year-old female 1 para 0 at 39 and one sevenths weeks who initially presented with contractions and was found to have elevated blood pressures. Preeclampsia workup was negative however she continued to have isolated elevated blood pressures. Therefore she was admitted for induction of labor. She underwent Cervidil cervical ripening which as not successful. She then underwent oxytocin induction of labor for approximately 4-5 hours with no change in cervix. Therefore the decision was made to proceed with primary section. She underwent a primary low transverse section on and delivered a viable female infant with scores of 8 at 1 minute and 9 at 5 minutes and weight of 7 lbs. 4 oz. Her post operative course has been essentially uncomplicated. She is passing flatus but no bowel movement yet. Her pain is fairly well controlled with ibuprofen and Tylenol 3. She is breast-feeding. Lochia is decreasing. Her blood pressures normalized after delivery. She has no other symptoms of preeclampsia. Vital signs are stable. Abdomen is soft with positive bowel sounds 4. Incision is clean and dry and intact. Extremities show negative Homans. Impression is status post primary section postoperative day #2. Plan is to discharge home today. Routine postoperative and instructions are given. She will be given prescriptions for ibuprofen, Tylenol 3, and a breast pump. Kristin will be removed and Steri-Strips placed prior to discharge. She is advised to follow up in the office in approximately 1 week for a postoperative check and in 6 weeks for a check. She is advised to call the office if she has any further questions or concerns prior to her appointment time. Procedures: Cervidil cervical ripening Oxytocin induction of labor Primary low transverse section on 02/04/2017 Patient Condition at Discharge: Stable Plan - Discharge Summary New Discharge Prescriptions: New Acetaminophen-Codeine 300-30mg [Tylenol w/codeine #3] 1 each PO Q4HR PRN #30 tab PRN Reason: Mild Pain Ibuprofen [Motrin] 600 mg PO Q6HR PRN #60 tab PRN Reason: Mild Pain Or Fever >= 100.5 Continue Sna-Xkph-Zkwtt Acid [-U Capsule (formulary)] 1 cap PO DAILY Discharge Medication List Vof-Pzdd-Dkpax Acid [-U Capsule (formulary)] 1 cap PO DAILY [History] Acetaminophen-Codeine 300-30mg [Tylenol w/codeine #3] 1 each PO Q4HR PRN #30 tab 02/06/17 [Rx] Ibuprofen [Motrin] 600 mg PO Q6HR PRN #60 tab 02/06/17 [Rx] Follow up Appointment(s)/Referral(s): Ce Anderson DO [Doctor of Osteopathic Medicine] - 1 Week Activity/Diet/Wound Care/Special Instructions: Instructions 1. Do not begin any exercise program for 3 weeks. 2. Do not resume sexual relations for 3 weeks or longer if uncomfortable. 3. You may take tub baths or showers at any time. 4. You may use tampons if desired after 3 weeks. 5. Keep the area of episiotomy (stitches) clean and dry. 6. If you are not nursing, wear a good fitting, supportive bra during the day and limit fluid intake for at least 1 week to prevent breast engorgement. 7. Call the office, [phone], within the next week to make appointment for your 6 week checkup if it has not already been made. 8. Report any of the following occurrences to the doctor promptly: a. Heavy, excessive bleeding b. Chills, fever c. Burning or frequency of urination d. Pain or redness and breasts if nursing e. Increasing pain or swelling in episiotomy (stitches). In addition to the above instructions, the following additional should be followed: 1. No heavy lifting or straining (exercising) until after 6 week checkup. 2. Keep abdominal incision clean and dry: You may wear a dressing if more comfortable. 3. Make office appointment for 10 days after going home or as instructed by her doctor. Discharge Disposition: HOME SELF-CARE
[2017-02-06 10:34] VITALS: RESP 20
[2017-02-06 10:35] VITALS: BP 138/83; PULSE 72; TEMP 97.9
== END 2017-02-06 12:50 | disposition home or self-care (01) | DRG 766 ==
LOC: FBPOP 10:00 → 4FBP 13:35
PROVIDERS: ADMIT Obstetrics & Gynecology; ATTEND Obstetrics & Gynecology
PROC: 3E0P7GC Introduction of Other Therapeutic Substance into Female Reproductive, Via Natural or Artificial Opening (ICD-10-PCS; 2017-02-04)
PROC: 3E033VJ Introduction of Other Hormone into Peripheral Vein, Percutaneous Approach (ICD-10-PCS; 2017-02-04)
PROC: 10D00Z1 Extraction of Products of Conception, Low, Open Approach (ICD-10-PCS; principal; 2017-02-04 12:35)
DX: O13.4 Gestational [pregnancy-induced] hypertension without significant proteinuria, complicating childbirth (principal); O77.0 Labor and delivery complicated by meconium in amniotic fluid; O69.81X0 Labor and delivery complicated by cord around neck, without compression, not applicable or unspecified; O62.2 Other uterine inertia; Z37.0 Single live birth; Z3A.39 39 weeks gestation of pregnancy; Z87.891 Personal history of nicotine dependence; Z88.1 Allergy status to other antibiotic agents; Z88.2 Allergy status to sulfonamides; Z82.49 Family history of ischemic heart disease and other diseases of the circulatory system
CPT/HCPCS: 59025; 81001; 82565; 83615; 84450; 84460; 84520; 84550; 85025; 85610; 85730; 88307; 90707; 99215

== ENCOUNTER → 2019-09-13 | Outpatient (CLI) | payer MEDICAID | END | disposition home or self-care (01) | LOC: LABWHC1 07:07 | PROVIDERS: ATTEND Pediatrics Pediatric Infectious Diseases | DX: U07.1 COVID-19 (principal) | CPT/HCPCS: 87635 ==

== ENCOUNTER → 2019-10-28 | Outpatient (CLI) | payer MEDICAID ==
--- NOTE | 2019-11-02 16:01 | ECHOF ---
Referral Reason:R94.31 Abn EKG MEASUREMENTS -------- HEIGHT: 170.2 cm WEIGHT: 83.9 kg BP: RVIDd: 2.8 cm (< 3.3) IVSd: 1.1 cm (0.6 - 1.1) LVIDd: 4.4 cm (3.9 - 5.3) LVPWd: 1.2 cm (0.6 - 1.1) IVSs: 1.1 cm LVIDs: 3.2 cm LVPWs: 1.5 cm LA Diam: 3.5 cm (2.7 - 3.8) LAESV Index (A-L): 26.99 ml/m Ao Diam: 2.8 cm (2.0 - 3.7) AV Cusp: 2.1 cm (1.5 - 2.6) LA Diam: 3.5 cm (2.7 - 3.8) MV EXCURSION: 16.594 mm (> 18.000) MV EF SLOPE: 120 mm/s (70 - 150) EPSS: 0.7 cm MV E Madi: 0.68 m/s MV DecT: 110 ms MV A Madi: 0.56 m/s MV E/A Ratio: 1.22 RAP: 5.00 mmHg RVSP: 18.11 mmHg FINDINGS -------- Sinus rhythm. This was a technically good study. LV size, wall thickness and systolic function are normal, with an EF greater than 55%. The left loren tricular size is normal. The right ventricle is normal in size. The left atrial size is normal. The right atrial size is normal. The aortic valve is trileaflet, and appears structurally normal. No aortic stenosis or regurgitation. Mild mitral regurgitation is present. Mild tricuspid regurgitation present. Right ventricular systolic pressure is normal at < 35 mmHg. There is no pulmonic regurgitation present. The aortic root size is normal. There is no pericardial effusion. CONCLUSIONS -------- 1. Sinus rhythm. 2. This was a technically good study. 3. LV size, wall thickness and systolic function are normal, with an EF greater than 55%. 4. The left ventricular size is normal. 5. The right ventricle is normal in size. 6. The left atrial size is normal. 7. The right atrial size is normal. 8. The aortic valve is trileaflet, and appears structurally normal. No aortic stenosis or regurgitati on. 9. Mild mitral regurgitation is present. 10. Mild tricuspid regurgitation present. 11. Right ventricular systolic pressure is normal at < 35 mmHg. 12. There is no pulmonic regurgitation present. 13. The aortic root size is normal. 14. There is no pericardial effusion. [employer] OPERATOR: Georgie Claros RDCS
== END | disposition home or self-care (01) ==
LOC: RADECHMAIN 13:30
PROVIDERS: ATTEND Internal Medicine
DX: I08.1 Rheumatic disorders of both mitral and tricuspid valves (principal)
CPT/HCPCS: 93306

== ENCOUNTER → 2020-02-16 | Outpatient (CLI) | payer MEDICAID ==
--- NOTE | 2020-02-16 18:42 | US ---
EXAMINATION TYPE: US pelvic complete DATE OF EXAM: 02/16/2020 COMPARISON: NONE CLINICAL HISTORY: 29-year-old female R10.2 PELVIC PAIN. Pelvic cramping, irregular menses TECHNIQUE: Transabdominal (TA). Date of LMP: 02/07/20, prior 12/13/19 TECHNIQUE: EXAM MEASUREMENTS: Uterus: 10.2 x 3.5 x 4.8 cm Endometrial Stripe: 0.9 cm Right Ovary: 5.1 x 2.7 x 3.0 cm Left Ovary: 3.7 x 2.4 x 3.6 cm 1. Uterus: Anteverted and otherwise wnl 2. Endometrium: wnl 3. Right Ovary: hypoechoic area = 2.8 x 1.7 x 2.3cm 4. Left Ovary: dominant follicle = 2.3cm 5. Bilateral Adnexa: wnl 6. Posterior cul-de-sac: wnl IMPRESSION: 1. A 2.3 cm dominant follicle in the left ovary. 2. A 2.8 cm hypoechoic area within the right ovary could represent a corpus luteum or hemorrhagic cys t. 3. No pelvic free fluid.
== END | disposition home or self-care (01) ==
LOC: RADUSWWP 15:38
PROVIDERS: ATTEND Obstetrics & Gynecology
DX: R93.89 Abnormal findings on diagnostic imaging of other specified body structures (principal); R10.2 Pelvic and perineal pain
CPT/HCPCS: 76856

== ENCOUNTER → 2021-04-02 | Outpatient (CLI) | payer MEDICAID ==
--- NOTE | 2021-04-02 11:23 | US ---
EXAMINATION TYPE: Transabdominal DATE OF EXAM: 04/02/2021 9:28 AM COMPARISON: NONE CLINICAL HISTORY: Z36.89 Confirm viability and gestational age. LMP unknown. EXAM PERFORMED: Transabdominal (TA) EXAM MEASUREMENTS: GESTATIONAL AGE / DATING Physician Established: EDC: Unknown Dates by LMP: EDC: Unknown Dates by First Scan: No previous this is first scan (9 weeks/1 days) EDC: 11/04/2021 MATERNAL ANATOMY Uterus: 14.1 x 6.9 x 7.9 cm; WNL Right Ovary: 4.0 x 3.2 x 2.4 cm; WNL Left Ovary: 3.0 x 2.7 x 2.0 cm; WNL Post CDS / Adnexa: WNL Presence of free fluid: No Presence of subchorionic bleed: No GESTATION / SURVEY CRL: 19.72 mm (8 weeks/4 days) MSD: 4.01 cm (9 weeks/5 days) Yolk Sac (normal less than 6mm): 0.31 cm Heart Rate: 165 bpm Rhythm: Normal IUP: Viable IUP Age Appropriate Anatomy Cord Insertion: Too early to visualize Limbs: Too early to visualize Calvarium: Too early to visualize Date of LMP: Unknown per patient Beta HcG (if available): Not available at this time Single live intrauterine gestation is seen as gestational sac, yolk sac, and pole are all ident ified. No free fluid in the pelvic cul-de-sac. Both ovaries seen. No suspicious extra ovarian adnexal lesions are present. IMPRESSION: Single live intrauterine gestation is confirmed, mean crown-rump length is 2.0 cm corresp onding to 8 week 4 day old fetus.
== END | disposition home or self-care (01) ==
LOC: RADUSWWP 08:58
PROVIDERS: ATTEND Obstetrics & Gynecology
DX: Z34.91 Encounter for supervision of normal pregnancy, unspecified, first trimester (principal); Z3A.08 8 weeks gestation of pregnancy
CPT/HCPCS: 76801

== ENCOUNTER → 2021-04-12 | Outpatient (CLI) | payer MEDICAID ==
[2021-04-12 18:34] LABS: HCT 37.7 % (37.2-46.3); HGB 12.2 g/dL (12.0-15.0); MCH 28.2 pg (27.0-32.0); MCHC 32.4 g/dL (32.0-37.0); MCV 87.3 fL (80.0-97.0); Mean Platelet Volume 10.7 fL (9.5-12.2); Platelet Count 297 X 10*3/uL (140-440); RBC 4.32 X 10*6/uL (4.10-5.20); RDW 12.8 % (11.5-14.5); WBC 7.09 X 10*3/uL (4.50-10.00)
[2021-04-13 00:34] LABS: African American GFR (CKD) 147.2 (60.0-200.0)
[2021-04-13 00:44] LABS: Hepatitis B Surface Antigen Nonreactive (Nonreactive)
[2021-04-13 07:08] LABS: HIV 2 AB Non-Reactive (Non-Reactive); HIV AB P24 Non-Reactive (Non-Reactive); HIV P24 AG Non-Reactive (Non-Reactive)
== END | disposition home or self-care (01) ==
LOC: LABWHC1 12:24
PROVIDERS: ATTEND Obstetrics & Gynecology
DX: Z34.81 Encounter for supervision of other normal pregnancy, first trimester (principal)
CPT/HCPCS: 36415; 82565; 82947; 85027; 86762; 86780; 86850; 86900; 86901; 87340; 87390

== ENCOUNTER → 2021-06-13 | Outpatient (CLI) | payer MEDICAID ==
--- NOTE | 2021-06-13 16:33 | US ---
EXAMINATION TYPE: US OB anatomy transabd DATE OF EXAM: 06/13/2021 COMPARISON: NONE HISTORY: 31-year-old female O36.62X0 Large for dates TECHNIQUE: Transabdominal (TA) EXAM MEASUREMENTS: GESTATIONAL AGE / DATING Physician Established: (18 weeks/6 days) EDC: 11/08/2021 Dates by First Scan: (19 weeks/3 days) EDC: 11/04/2021 Dates by Current Scan for: (18 weeks/5 days) (5 days less growth than expected compared to 04/02/2021 ) EDC: 11/09/2021 SURVEY IUP: Single PLACENTA: Posterior PREVIA: Low Lying (approximately 3.0 - 3.5 cm from the internal cervical os). DEANGELO: 12.78 cm Normal CERVICAL LENGTH (transabdominal: norm > 3.0cm): 3.6 cm BIOMETRY PRESENTATION: Variable LIE: Variable BPD: 4.22 cm 18 weeks / 5 days HC: 15.93 cm 18 weeks / 5 days AC: 13.98 cm 19 weeks / 3 days FL: 2.84 cm 18 weeks / 5 days ESTIMATED WEIGHT IN GRAMS: 269.49 grams ESTIMATED WEIGHT IN LBS/OZ: lbs. 10 oz. WEIGHT PERCENTAGE BASED ON ESTABLISHED DATE: 55.3 % HC/AC: 1.14 Normal FL/AC: 20.28 Normal HEART RATE: 132 bpm RHYTHM: Normal ANATOMY SEEN (within normal limits): Lateral Vent (< 1 cm) 0.8 cm Cisterna Magna (< 1.1 cm) 0.6 cm Nuchal Fold (< 0.6 cm) 0.3 cm Cerebellum (varies with age) 1.9 cm Choroid Plexus (bilateral) Midline Falx Cavus Septi Pellucidi Outflow tract: RVOT Stomach Situs Nose / Lips Diaphragm Kidneys (bilateral) Bladder Three Vessel Cord Longitudinal Spine Transverse Spine Arms (bilateral) Legs (bilateral) ANATOMY SUBOPTIMALLY ASSESSED: Outflow tract: LVOT Four Chamber Heart Cord Insert (excessive soft tissue to the lateral margin of the cord insertion, likely positional) IMPRESSION: 1. Single live intrauterine with established gestational age of 18 weeks 6 days. Current ul trasound biometry is concordant (18 weeks 5 days) placing the child at the 55th percentile for weight . There has been 5 days less growth than expected compared to 04/02/2021. 2. Low-lying posterior placenta located approximately 3.0 to 3.5 cm from the internal cervical os. 3. A few structures on the survey were suboptimally visualized at this time due to positioning. (LVOT, four-chamber heart, and cord insertion). Consider rescan in 1 to 2 weeks to reassess. 4. The remaining structures appear normal.
== END | disposition home or self-care (01) ==
LOC: RADUSWWP 13:31
PROVIDERS: ATTEND Obstetrics & Gynecology
DX: O36.62X0 Maternal care for excessive fetal growth, second trimester, not applicable or unspecified (principal); O44.42 Low lying placenta NOS or without hemorrhage, second trimester; Z3A.18 18 weeks gestation of pregnancy
CPT/HCPCS: 76811

== ENCOUNTER → 2021-07-19 | Outpatient (CLI) | payer MEDICAID ==
--- NOTE | 2021-07-19 15:53 | US ---
EXAMINATION TYPE: US OB Call Back DATE OF EXAM: 07/19/2021 COMPARISON: Prior ultrasound exams April 02, 2021 and June 13, 2021 CLINICAL HISTORY: Z36.2 FOLLOW UP FOR ANATOMY. OB call back. GESTATIONAL AGE / DATING Dates by Initial Survey Scan: (24 weeks/0 days) EDC: 11/08/2021 HEART RATE: 144 bpm RHYTHM: Normal ANATOMY SEEN (second anatomic survey look): Four Chamber Heart: wnl Outflow tracts:? LVOT Cord Insert : wnl ANATOMY STILL NOT SEEN (requiring an additional callback appt): Single live intrauterine gestation is redemonstrated. Four-chamber heart within normal limits on stil l images saved. Left ventricular outflow track along with cord insertion appeared within normal limit s during real-time scanning more difficult to document still images. IMPRESSION: As above.
== END | disposition home or self-care (01) ==
LOC: RADUSWWP 15:02
PROVIDERS: ATTEND Obstetrics & Gynecology
DX: Z53.9 Procedure and treatment not carried out, unspecified reason (principal)

== ENCOUNTER 2021-07-25 17:23 | Emergency (ER) | payer MEDICAID ==
[2021-07-25 17:35] VITALS: TEMP 97.8
[2021-07-25] MEDS ORDERED: ASPIRIN 81 MG PO STA (18:14)
[2021-07-25 19:04] LABS: Basophils % (A) 0 %; Eosinophils # (A) 0.2 k/uL (0-0.7); Eosinophils % (A) 2 %; HCT 35.6 % (34.0-46.0); HGB 11.7 gm/dL (11.4-16.0); Lymphocytes # (A) 2.1 k/uL (1.0-4.8); Lymphocytes % (A) 21 %; MCH 28.3 pg (25.0-35.0); MCHC 32.9 g/dL (31.0-37.0); MCV 86.1 fL (80.0-100.0); Mean Platelet Volume 8.5; Monocytes # (A) 0.6 k/uL (0-1.0); Monocytes % (A) 6 %; Neutrophils # (A) 6.7 k/uL (1.3-7.7); Neutrophils % (A) 67 %; Platelet Count 237 k/uL (150-450); RBC 4.13 m/uL (3.80-5.40); RDW 13.2 % (11.5-15.5); WBC 9.9 k/uL (3.8-10.6)
--- NOTE | 2021-07-25 19:07 | XR ---
EXAMINATION TYPE: XR chest 1V portable DATE OF EXAM: 07/25/2021 6:25 PM COMPARISON:None TECHNIQUE: XR chest 1V portable Frontal view of the chest. CLINICAL INDICATION:Female, 31 years old with history of chest pain; FINDINGS: Lungs/Pleura: There is no evidence of pleural effusion, focal consolidation, or pneumothorax. Pulmonary vascularity: Unremarkable. Heart/mediastinum: Cardiomediastinal silhouette is unremarkable. Musculoskeletal: No acute osseous pathology. IMPRESSION: No acute cardiopulmonary disease/process.
[2021-07-25 19:12] LABS: ALT 13 U/L (4-34); African American GFR (CKD) >90 (>60 ml/min/1.73 sqM); Anion Gap 9 mmol/L; Blood Urea Nitrogen 7 mg/dL (7-17); Calcium 8.9 mg/dL (8.4-10.2); Carbon Dioxide 18 mmol/L (22-30); Chloride 107 mmol/L (98-107); Glucose 90 mg/dL (74-99); Magnesium 1.8 mg/dL (1.6-2.3); Non-African American GFR(CKD) >90 (>60 ml/min/1.73 sqM); Sodium 134 mmol/L (137-145); Total Bilirubin 0.5 mg/dL (0.2-1.3)
[2021-07-25 19:14] LABS: AST 27 U/L (14-36); Albumin 3.5 g/dL (3.5-5.0); Alkaline Phosphatase 43 U/L (38-126); Potassium 4.1 mmol/L (3.5-5.1); Total Protein 6.6 g/dL (6.3-8.2)
[2021-07-25 19:28] LABS: INR 0.9 (<1.2); Prothrombin Time 9.8 sec (9.0-12.0)
[2021-07-25 19:34] LABS: Partial Thromboplastin Time 20.2 sec (22.0-30.0)
--- NOTE | 2021-07-25 20:00 | ED ---
General Adult HPI - General Chief complaint: Chest Pain Stated complaint: Chest pain-25 weeks preg. Time Seen by Provider: 07/25/21 17:55 Source: patient, RN notes reviewed, old records reviewed Mode of arrival: ambulatory Limitations: no limitations - History of Present Illness Initial comments: Patient is a 31-year-old female with past medical history remarkable for prior cardiac monitoring with a previous finding of ventricular tachycardia his be m onitored closely presents emergency Department complaining of acute onset of chest pain. This occurred approximately 3-4 hours prior to arrival. Describes it as a pulling/sharp sensation in the left chest that did not radiate. It subsegments own. She states she became anxious due to her history of V. tach and wanted to be evaluated. States that when she was in V. tach, she had no symptoms. She denies any other associated symptoms with the pain including shortness of breath, headaches, weakness, numbness, abdominal pain. She is currently 25 weeks with no complications. Denies any vaginal bleeding, abdominal cramping, nausea, vomiting. Has no other acute complaints at this ti al. Patient states that the pain has pretty much resolved following Tylenol administration. She presents over concern for her heart. - Related Data Home Medications Medication Instructions Recorded Confirmed Ffx-Sjii-Swyxg Acid 1 cap PO DAILY 07/13/16 02/03/17 [-U Capsule (formulary)] Previous Rx's Medication Instructions Recorded Acetaminophen-Codeine 300-30mg 1 each PO Q4HR PRN #30 tab 02/06/17 [Tylenol w/codeine #3] Ibuprofen [Motrin] 600 mg PO Q6HR PRN #60 tab 02/06/17 Allergies Allergy/AdvReac Type Severity Reaction Status Date / Time sulfamethoxazole AdvReac Rash/Hives Verified 07/25/21 17:32 [From Bactrim] trimethoprim [From Bactrim] AdvReac Rash/Hives Verified 07/25/21 17:32 Review of Systems ROS Statement: Those systems with pertinent positive or pertinent negative responses have been documented in the HPI. Review of Systems: CONST: Denies fever EYES: Denies blurry vision ENT: Denies nasal congestion C/V: Endorses chest pain RESP: Denies shortness of breath GI: Denies abdominal pain : Denies dysuria SKIN: Denies rash. MSK: Denies joint pain. NEURO: Denies headache ROS Other: All systems not noted in ROS Statement are negative. Past Medical History Past Medical History: No Reported History History of Any Multi-Drug Resistant Organisms: MRSA Date of last positivie culture/infection: 2007 MDRO Source:: left leg wound Past Surgical History: No Surgical Hx Reported Additional Past Surgical History / Comment(s): pt states had sinus surgery in 2006 Past Psychological History: No Psychological Hx Reported Smoking Status: Never smoker Past Alcohol Use History: None Reported Past Drug Use History: None Reported - Past Family History Father History Unknown: Yes Family Medical History: Hypertension General Exam - General Exam Comments Initial Comments: General: Appears in no acute distress. HEAD: Normal with no signs of head trauma. EYES: PERRLA, EOMI, conjunctiva normal, no discharge. ENT: Hearing grossly intact, normal oropharynx. RESPIRATORY: Clear breath sounds bilaterally. No wheezes, rales, or rhonchi. C/V: Regular rate and rhythm. S1 and S2 auscultated, no edema, peripheral pulses 2+ and intact throughout ABD: Gravid uterus. Abdomen otherwise soft, nontender, nondistended. EXT: Normal range of motion, no obvious deformity SKIN: No rashes or lesions observed on exposed skin. NEURO: Alert and oriented 4. No focal sensory strength deficits. Limitations: no limitations Course Vital Signs 07/25/21 07/25/21 17:32 20:13 Temperature 97.8 F Pulse Rate 73 88 Respiratory 16 18 Rate Blood Pressure 129/81 120/68 O2 Sat by Pulse 97 98 Oximetry Medical Decision Making - Medical Decision Making Some patient's presentation and physical exam, I'm concerned for possible cardiac etiology for her current symptoms. Therefore we will obtain a cardiac workup. Patient seems to be improving in terms of symptoms, however with her history with this as best. She was in agreement this plan. EKG shows no signs of acute ischemia. Chest x-ray reveals no acute cardiopulmonary process. I did discuss obtaining a 1 view x-ray with the peter ent prior to ordering it and she consented, considering she is . Laboratory studies are remarkable for a undetectable troponin. Remainder of her labs are unremarkable. On reevaluation, patient is feeling improved. Chest pain is resolved. Heart score is 1, low. I discussed admission versus discharge with the patient. She feels comfortable being discharged home and I am in agreement with the plan. She does have follow-up with her [employer] tomorrow. Strict return precautions will be provided to her. Patient was therefore discharged home. I instructed the patient to follow up with their PCP in the next 3 days. I explained that the patient should return to the emergency department if they experience any worsening symptoms. Strict return precautions were discussed with the patient. The patient expressed understanding of these instructions. I answered all questions that the patient had. The patient was discharged home in good condition with their prescriptions and follow up information. - Lab Data Result diagrams: 07/25/21 18:50 07/25/21 18:50 Lab Results 07/25/21 07/25/21 07/25/21 Range/Units 18:50 18:50 18:50 WBC 9.9 (3.8-10.6) k/uL RBC 4.13 (3.80-5.40) m/uL Hgb 11.7 (11.4-16.0) gm/dL Hct 35.6 (34.0-46.0) % MCV 86.1 (80.0-100.0) fL MCH 28.3 (25.0-35.0) pg MCHC 32.9 (31.0-37.0) g/dL RDW 13.2 (11.5-15.5) % Plt Count 237 (150-450) k/uL MPV 8.5 Neutrophils % 67 % Lymphocytes % 21 % Monocytes % 6 % Eosinophils % 2 % Basophils % 0 % Neutrophils # 6.7 (1.3-7.7) k/uL Lymphocytes # 2.1 (1.0-4.8) k/uL Monocytes # 0.6 (0-1.0) k/uL Eosinophils # 0.2 (0-0.7) k/uL Basophils # 0.0 (0-0.2) k/uL PT 9.8 (9.0-12.0) sec INR 0.9 (<1.2) APTT 20.2 L (22.0-30.0) sec Sodium 134 L (137-145) mmol/L Potassium 4.1 (3.5-5.1) mmol/L Chloride 107 (98-107) mmol/L Carbon Dioxide 18 L (22-30) mmol/L Anion Gap 9 mmol/L BUN 7 (7-17) mg/dL Creatinine 0.53 (0.52-1.04) mg/dL Est GFR (CKD-EPI)AfAm >90 (>60 ml/min/1.73 sqM) Est GFR (CKD-EPI)NonAf >90 (>60 ml/min/1.73 sqM) Glucose 90 (74-99) mg/dL Calcium 8.9 (8.4-10.2) mg/dL Magnesium 1.8 (1.6-2.3) mg/dL Total Bilirubin 0.5 (0.2-1.3) mg/dL AST 27 (14-36) U/L ALT 13 (4-34) U/L Alkaline Phosphatase 43 (38-126) U/L Troponin I (0.000-0.034) ng/mL Total Protein 6.6 (6.3-8.2) g/dL Albumin 3.5 (3.5-5.0) g/dL 07/25/21 Range/Units 18:50 WBC (3.8-10.6) k/uL RBC (3.80-5.40) m/uL Hgb (11.4-16.0) gm/dL Hct (34.0-46.0) % MCV (80.0-100.0) fL MCH (25.0-35.0) pg MCHC (31.0-37.0) g/dL RDW (11.5-15.5) % Plt Count (150-450) k/uL MPV Neutrophils % % Lymphocytes % % Monocytes % % Eosinophils % % Basophils % % Neutrophils # (1.3-7.7) k/uL Lymphocytes # (1.0-4.8) k/uL Monocytes # (0-1.0) k/uL Eosinophils # (0-0.7) k/uL Basophils # (0-0.2) k/uL PT (9.0-12.0) sec INR (<1.2) APTT (22.0-30.0) sec Sodium (137-145) mmol/L Potassium (3.5-5.1) mmol/L Chloride (98-107) mmol/L Carbon Dioxide (22-30) mmol/L Anion Gap mmol/L BUN (7-17) mg/dL Creatinine (0.52-1.04) mg/dL Est GFR (CKD-EPI)AfAm (>60 ml/min/1.73 sqM) Est GFR (CKD-EPI)NonAf (>60 ml/min/1.73 sqM) Glucose (74-99) mg/dL Calcium (8.4-10.2) mg/dL Magnesium (1.6-2.3) mg/dL Total Bilirubin (0.2-1.3) mg/dL AST (14-36) U/L ALT (4-34) U/L Alkaline Phosphatase (38-126) U/L Troponin I <0.012 (0.000-0.034) ng/mL Total Protein (6.3-8.2) g/dL Albumin (3.5-5.0) g/dL - EKG Data -: EKG Interpreted by Me EKG Comments: 12-lead Electrocardiogram Interpretation Note EKG was reviewed and interpreted by myself. 12-lead ECG performed at 1853 is interpreted by me as revealing normal sinus rhythm at a rate of 57 beats per minute. [place] is normal. ME interval is 193 ms, QRS durations 87 ms, QTc is 403 ms.. There were no ST or T wave abnormalities to suggest myocardial ischemia or injury. R wave progression across the precordium was satisfactory. By my interpretation this EKG is non-diagnostic for acute ischemia. Disposition Clinical Impression: Chest pain of unknown etiology Disposition: HOME SELF-CARE Condition: Good Instructions (If sedation given, give patient instructions): Chest Pain (ED) Is patient prescribed a controlled substance at d/c from ED?: No Referrals: Addison Stuart MD [Primary Care Provider] - 1-2 days
[2021-07-25 20:25] VITALS: BP 120/68; PULSE 88; RESP 18
== END 2021-07-25 20:28 | disposition home or self-care (01) ==
LOC: EC 17:23
DX: O26.892 Other specified pregnancy related conditions, second trimester (principal); R07.89 Other chest pain; Z3A.25 25 weeks gestation of pregnancy
CPT/HCPCS: 36415; 71045; 80053; 83735; 84484; 85025; 85610; 85730; 93005; 99285

== ENCOUNTER → 2021-07-25 | Outpatient (CLI) | payer MEDICAID ==
--- NOTE | 2021-07-25 12:44 | US ---
EXAMINATION TYPE: US OB Call Back DATE OF EXAM: 07/25/2021 COMPARISON: 07/19/2021 CLINICAL HISTORY: Z36.2 FOLLOW UP FOR ANATOMY. Follow up GESTATIONAL AGE / DATING Dates by Initial Survey Scan: (24 weeks/6 days) EDC: 11/08/2021 HEART RATE: 135 bpm RHYTHM: Normal ANATOMY SEEN (second anatomic survey look): Four Chamber Heart Outflow tracts: LVOT Cord Insert IMPRESSION: The cord insertion, four-chamber heart, and LVOT appear normal. This completes the survey.
== END | disposition home or self-care (01) ==
LOC: RADUSWWP 09:05
PROVIDERS: ATTEND Obstetrics & Gynecology
DX: Z36.2 Encounter for other antenatal screening follow-up (principal)

== ENCOUNTER → 2021-08-12 | Outpatient (CLI) | payer MEDICAID ==
[2021-08-12 12:48] LABS: Glucose 3 Hour, Gest 120 mg/dL
== END | disposition home or self-care (01) ==
LOC: LABWHC1 08:02
PROVIDERS: ATTEND Obstetrics & Gynecology
DX: O99.810 Abnormal glucose complicating pregnancy (principal); Z3A.00 Weeks of gestation of pregnancy not specified
CPT/HCPCS: 36415; 82951; 82952

== ENCOUNTER → 2021-08-29 | Outpatient (CLI) | payer MEDICAID ==
--- NOTE | 2021-08-29 16:24 | US ---
EXAMINATION TYPE: US OB >= 14 wk fetus DATE OF EXAM: 08/29/2021 COMPARISON: None CLINICAL HISTORY: O36.63X0 LARGE FOR DATES LGA TECHNIQUE: Transabdominal (TA) GESTATIONAL AGE / DATING Physician Established: (29 weeks/6 days) EDC: 11/08/21 Dates by First Scan: (30 weeks/3 days) EDC: 11/04/21 Dates by Current Scan: (30 weeks/2 days) EDC: 11/05/21 SURVEY IUP: Single PLACENTA: Posterior PREVIA: No Previa DEANGELO: 13.1 cm Normal CERVICAL LENGTH (transabdominal: norm > 3.0cm): 4.7 cm BIOMETRY PRESENTATION: Vertex LIE: Longitudinal BPD: 7.4 cm 29 weeks / 5 days HC: 28.0 cm 30 weeks / 6 days AC: 26.7 cm 30 weeks / 6 days FL: 5.6 cm 29 weeks / 4 days ESTIMATED WEIGHT IN GRAMS: 1544 grams ESTIMATED WEIGHT IN LBS/OZ: 3 lbs. 6 oz. WEIGHT PERCENTAGE BASED ON ESTABLISHED DATES: 52% HC/AC: 1.05 Normal FL/AC: 21% Normal HEART RATE: 135 bpm RHYTHM: Normal IMPRESSION: Single viable intrauterine .
== END | disposition home or self-care (01) ==
LOC: RADUSWWP 15:39
PROVIDERS: ATTEND Obstetrics & Gynecology
DX: O36.63X0 Maternal care for excessive fetal growth, third trimester, not applicable or unspecified (principal); Z3A.30 30 weeks gestation of pregnancy
CPT/HCPCS: 76805

== ENCOUNTER 2021-09-09 12:38 | Outpatient (CLI) | payer MEDICAID ==
--- NOTE | 2021-09-09 14:08 | US ---
EXAMINATION TYPE: US OB BPP wo non-stress DATE OF EXAM: 09/09/2021 COMPARISON: Prior ultrasound 9 days ago CLINICAL HISTORY: gestational hypertension. active baby, here for nst, gest hypertension EXAM PERFORMED: Transabdominal (TA) BPP PARAMETERS: PRESENTATION: Vertex LIE: Longitudinal?? HEART RATE: 133 bpm RHYTHM: Normal DEANGELO: 20.8cm DIAPHRAGM IMAGED: yes BPP SCORIN. Breathin (1 episode of breathing of 30 second duration in 30 minutes of scanning time) 2. Movement: 2 (at least 3 discrete body movements in 30 minutes) 3. Tone: 2 (1 episode of active flexion/extension of limb) 4. DEANGELO: 2 (DEANGELO index > 5cm) TOTAL SCORE: 8 / 8 Impression: Normal NST.
--- NOTE | 2021-09-10 04:49 | P.MSEPDOC ---
Presenting Problems - Arrival Data Date of Arrival on Unit: 09/09/21 Time of Arrival on Unit: 12:38 Mode of Transport: Ambulatory - Complaint OB-Reason for Admission/Chief Complaint: NST, Other Comment: pt sent with written orders from Dr. Anderson for 2x week NST's and weekly BPP, pt with hx of preeclampsia, Medical History - Gestational Age Gestational Age by ELENA (wks/days): 32 Weeks and 0 Days - History Complications: Other Comment: hx of preeclampsia and gest hypertension, also has muscular dystrophy Review of Systems - Review of Systems Constitutional: No problems Breast: No problems ENT: No problems Cardiovascular: No problems Respiratory: No problems Gastrointestinal: No problems Genitourinary: No problems Musculoskeletal: No problems Neurological: No problems Skin: No problems Medical Screen Scoring - Assessment - Baby A Baseline FHR: 125 Heart Rate - NICHD Category: Category I (Normal) NST: Reactive Physician Notification - Physician Notified Physician Notified Date: 09/09/21 Physician Notified Time: 14:40 Maternal Triage Index - Maternal Triage Index Presenting for scheduled procedure w/no complaint: Yes - Scheduled/Requesting Priority 5 Scheduled/Requesting Priority 5: Yes Criteria Met for Priority 5: pt sent with written orders from Dr. Anderson for 2x week NST's and weekly BPP, pt with hx of preeclampsia, Disposition - Disposition OB Disposition: Triage, Discharge to home, Written follow up instructions reviewed Discharge Date: 09/09/21 Discharge Time: 14:45 I agree with the RN Medical Screening Exam: Yes Case reviewed; plan agreed upon as documented in EMR&OBIX.: Yes Diagnosis: SUPERVISION OF HIGH RISK , UNSP, THIRD TRIMESTER
== END 2021-09-09 14:45 | disposition home or self-care (01) ==
LOC: FBPOP 12:38
PROVIDERS: ATTEND Obstetrics & Gynecology
DX: O09.93 Supervision of high risk pregnancy, unspecified, third trimester (principal); Z3A.32 32 weeks gestation of pregnancy; Z88.2 Allergy status to sulfonamides; Z87.891 Personal history of nicotine dependence
CPT/HCPCS: 59025; 76819

== ENCOUNTER → 2021-09-19 | Outpatient (CLI) | payer MEDICAID ==
--- NOTE | 2021-09-20 05:56 | US ---
EXAMINATION TYPE: US OB BPP wo non-stress DATE OF EXAM: 09/19/2021 COMPARISON: Prior stress test 10 days ago CLINICAL HISTORY: gestational diabetes. EXAM PERFORMED: Transabdominal (TA) BPP PARAMETERS: PRESENTATION: Breech LIE: Longitudinal?? HEART RATE: 113 bpm RHYTHM: Normal EDANGELO: 14.3 cm DIAPHRAGM IMAGED: Yes BPP SCORIN. Breathin (1 episode of breathing of 30 second duration in 30 minutes of scanning time) 2. Movement: 2 (at least 3 discrete body movements in 30 minutes) 3. Tone: 2 (1 episode of active flexion/extension of limb) 4. DEANGELO: 2 (DEANGELO index > 5cm) TOTAL SCORE: 8 / 8 Impression: Normal NST again noted.
--- NOTE | 2021-09-20 05:59 | US ---
EXAMINATION TYPE: US OB >= 14 wk fetus DATE OF EXAM: 09/19/2021 COMPARISON: Prior ultrasound August 29, 2021 CLINICAL HISTORY: O36.63X0 LARGE FOR DATESLarge for dates. TECHNIQUE: GESTATIONAL AGE / DATING Physician Established: (32 weeks/6 days) EDC: 11/08/2021 Dates by LMP: (32 weeks/6 days) EDC: 11/08/2021 Dates by First Scan: ( 9 weeks/1 days) EDC: 11/04/2021 Dates by Current Scan: (33 weeks/3 days) EDC: 11/04/2021 Beta HCG (if available): Not available at this time SURVEY IUP: Single PLACENTA: Posterior PREVIA: No Previa DEANGELO: 13.70 cm Normal CERVICAL LENGTH (transabdominal: norm > 3.0cm): 4.8 cm CERVICAL LENGTH (transvaginal: norm> 2.5cm): cm (Supplemental transvaginal imaging performed to verify cervical length.) BIOMETRY PRESENTATION: Breech LIE: Longitudinal BPD: 8.1 cm 32 weeks / 4 days HC: 30.9 cm 34 weeks / 4 days AC: 28.5 cm 32 weeks / 4 days FL: 6.5 cm 33 weeks / 4 days ESTIMATED WEIGHT IN GRAMS: 2101 grams ESTIMATED WEIGHT IN LBS/OZ: 4 lbs. 10 oz. WEIGHT PERCENTAGE BASED ON ESTABLISHED DATES: 46% HC/AC: 1.08 cm Normal FL/AC: 23% Normal HEART RATE: 113 bpm RHYTHM: Normal Single live intrauterine gestation redemonstrated. No cervical thinning. No placenta previa. Estimate d amniotic fluid index within normal limits. biometry measurements remain congruent and within normal limits. A breech presentation to the fetus is now currently seen. IMPRESSION: As above. Breech presentation currently noted.
== END | disposition home or self-care (01) ==
LOC: RADUSWWP 09:04
PROVIDERS: ATTEND Obstetrics & Gynecology
DX: O24.419 Gestational diabetes mellitus in pregnancy, unspecified control (principal); O32.1XX0 Maternal care for breech presentation, not applicable or unspecified; Z3A.34 34 weeks gestation of pregnancy
CPT/HCPCS: 76805; 76819

== ENCOUNTER 2021-09-20 15:08 | Outpatient (CLI) | payer MEDICAID ==
[2021-09-20 17:19] VITALS: BP 125/66; PULSE 84; TEMP 98
== END 2021-09-20 16:00 | disposition home or self-care (01) ==
LOC: FBPOP 15:08
PROVIDERS: ATTEND Obstetrics & Gynecology
DX: O13.3 Gestational [pregnancy-induced] hypertension without significant proteinuria, third trimester (principal); Z3A.33 33 weeks gestation of pregnancy; Z88.2 Allergy status to sulfonamides; Z87.891 Personal history of nicotine dependence
CPT/HCPCS: 59025; 99215

== ENCOUNTER → 2021-09-20 | Outpatient (CLI) | payer MEDICAID ==
--- NOTE | 2021-09-20 18:34 | CA ---
Transthoracic Echo Report Name: Riddhi Gonzalez Age: 31 Gender: F : 1990 Exam Date: 09/20/2021 16:10 Exam Location: [place] [facility] Ht (in): 67 Wt (lb): 221 Ordering Physician: Suzanna Walters MD ([id number]) Attending/Referring Phys: Terminal Manager Procedure CPT: Indications: R00.2 palpitations Cardiac Hx: Pt is 34 weeks . Hx of tachycardia, see's DR. Vladimir Walters Technical Quality: Fair Contrast 1: Total Dose (mL): Contrast 2: Total Dose (mL): MEASUREMENTS (Male / Female) Normal Values 2D ECHO LV Diastolic Diameter PLAX 4.7 cm 4.2 - 5.9 / 3.9 - 5.3 cm LV Systolic Diameter PLAX 2.6 cm IVS Diastolic Thickness 0.9 cm 0.6 - 1.0 / 0.6 - 0.9 cm LVPW Diastolic Thickness 1.0 cm 0.6 - 1.0 / 0.6 - 0.9 cm LV Relative Wall Thickness 0.4 RV Internal Dim ED PLAX 2.4 cm LA Volume 45.7 cm??? 18 - 58 / 22 - 52 cm??? M-MODE Aortic Root Diameter MM 3.0 cm LA Systolic Diameter MM 2.9 cm LA Ao Ratio MM 1.0 MV E Point Septal Separation 0.9 cm AV Cusp Separation MM 2.0 cm DOPPLER AV Peak Velocity 133.6 cm/s AV Peak Gradient 7.1 mmHg MV Area PHT 4.0 cm??? MR Peak Velocity 116.4 cm/s MR Peak Gradient 5.4 mmHg Mitral E Point Velocity 72.4 cm/s Mitral A Point Velocity 44.9 cm/s Mitral E to A Ratio 1.6 MV Deceleration Time 190.5 ms MV E' Velocity 14.2 cm/s Mitral E to MV E' Ratio 5.1 TR Peak Velocity 110.9 cm/s TR Peak Gradient 4.9 mmHg Right Ventricular Systolic Press 9.8 mmHg FINDINGS Left Ventricle Normal Left ventricular size, wall thickness, systolic function with no obvious regional wall motion abnormalities. Normal Left ventricular diastolic filling pattern. Left ventricular ejection fraction is estimated at 55-60 %. Normal left ventricular diastolic filling pattern. Right Ventricle Right ventricular systolic pressure within normal limits. Right Atrium Normal right atrial size. Left Atrium The left atrium is normal in size. Mitral Valve Cannot exclude Mild prolapse of the anterior mitral valve leaflet. . There is mild mitral regurgitation. Aortic Valve Structurally normal aortic valve without significant sclerosis or stenosis. There is no aortic regurgitation. Tricuspid Valve Structurally normal tricuspid valve without significant stenosis. Pulmonary artery systolic pressure is normal. Mild tricuspid regurgitation. Pulmonic Valve Structurally normal pulmonic valve without significant stenosis. There is no pulmonic regurgitation. Pericardium Normal pericardium without effusion. Aorta Normal aortic root dimension. CONCLUSIONS Normal left ventricular dimension and systolic function Mild mitral valve prolapse Poorly visualized aortic valve Previewed by: Dr. Luis Enrique Lima MD (Electronically Signed) Final Date: 20 Sep 2021 18:33
== END | disposition home or self-care (01) ==
LOC: RADECHMAIN 16:01
PROVIDERS: ATTEND Internal Medicine Interventional Cardiology
DX: I08.1 Rheumatic disorders of both mitral and tricuspid valves (principal)
CPT/HCPCS: 93306

== ENCOUNTER 2021-09-25 15:07 | Outpatient (CLI) | payer MEDICAID ==
[2021-09-25 16:42] VITALS: BP 121/70; PULSE 82; RESP 16; TEMP 97.9
--- NOTE | 2021-09-25 16:42 | US ---
EXAMINATION TYPE: US OB BPP wo non-stress DATE OF EXAM: 09/25/2021 COMPARISON: US 2021 CLINICAL HISTORY: weekly BPP for hx of gest hypertension. EXAM PERFORMED: Transabdominal (TA) BPP PARAMETERS: PRESENTATION: Vertex LIE: Longitudinal?? HEART RATE: 116 bpm RHYTHM: Normal DEANGELO: 8.6cm DIAPHRAGM IMAGED: yes BPP SCORIN. Breathin (1 episode of breathing of 30 second duration in 30 minutes of scanning time) 2. Movement: 2 (at least 3 discrete body movements in 30 minutes) 3. Tone: 2 (1 episode of active flexion/extension of limb) 4. DEANGELO: 2 (DEANGELO index > 5cm) TOTAL SCORE: 8 / 8
--- NOTE | 2021-09-30 07:49 | P.MSEPDOC ---
Presenting Problems - Arrival Data Date of Arrival on Unit: 09/25/21 Time of Arrival on Unit: 15:07 Mode of Transport: Ambulatory - Complaint OB-Reason for Admission/Chief Complaint: NST, Other Comment: pt presents to triage for weekly NST's and BPP Medical History - Information : 2 Para: 1 Term: 1 : 0 Abortions: Spontaneous or Elective: 0 Number of Living Children: 1 - Gestational Age Gestational Age by ELENA (wks/days): 34 Weeks and 2 Days - History Complications: Prior Comment: previous hx gest htn Review of Systems - Review of Systems Constitutional: No problems Breast: No problems ENT: No problems Cardiovascular: No problems Respiratory: No problems Gastrointestinal: No problems Genitourinary: No problems Musculoskeletal: No problems Neurological: No problems Skin: No problems Vital Signs - Temperature Temperature: 97.9 F Temperature Source: Temporal Artery Scan - Pulse Right Brachial Pulse Rate: 82 Pulse Assessment Method: Automatic Cuff - Respirations Respiratory Rate: 16 Oxygen Delivery Method: Room Air - Blood Pressure Right Arm Blood Pressure: 121/70 Blood Pressure Mean: 87 Blood Pressure Source: Automatic Cuff Physician Notification - Physician Notified Physician Notified Date: 09/25/21 Physician Notified Time: 16:29 Physician: Lina Akhtar New Order Received: Yes - Notification Comment Comment: pt had reactive nst and BPP 12/02, Dr. Akhtar given results, orders given for discharge, pt has apt with Dr. Anderson on 10/04 Maternal Triage Index - Maternal Triage Index Presenting for scheduled procedure w/no complaint: Yes - Scheduled/Requesting Priority 5 Scheduled/Requesting Priority 5: Yes Criteria Met for Priority 5: pt presents to triage for weekly NST's and BPP Disposition - Disposition OB Disposition: Triage, Discharge to home, Written follow up instructions reviewed Discharge Date: 09/25/21 Discharge Time: 16:35 I agree with the RN Medical Screening Exam: Yes Case reviewed; plan agreed upon as documented in EMR&OBIX.: Yes Diagnosis: SUPERVISION OF HIGH RISK , UNSP, THIRD TRIMESTER
== END 2021-09-25 16:35 | disposition home or self-care (01) ==
LOC: FBPOP 15:07
PROVIDERS: ATTEND Obstetrics & Gynecology
DX: O09.93 Supervision of high risk pregnancy, unspecified, third trimester (principal); Z3A.34 34 weeks gestation of pregnancy; Z88.2 Allergy status to sulfonamides; Z87.891 Personal history of nicotine dependence
CPT/HCPCS: 59025; 76819; 99213

== ENCOUNTER → 2021-09-28 | Outpatient (CLI) | payer MEDICAID ==
[2021-09-28 19:58] VITALS: BP 127/67; PULSE 67; RESP 14; TEMP 97
--- NOTE | 2021-09-29 08:16 | P.MSEPDOC ---
Presenting Problems - Arrival Data Date of Arrival on Unit: 09/28/21 Time of Arrival on Unit: 19:00 Mode of Transport: Ambulatory - Complaint OB-Reason for Admission/Chief Complaint: NST Medical History - Information : 2 Para: 1 Term: 1 : 0 Abortions: Spontaneous or Elective: 0 Number of Living Children: 1 - Gestational Age Gestational Age by ELENA (wks/days): 34 Weeks and 5 Days Review of Systems - Review of Systems Constitutional: No problems Breast: No problems ENT: No problems Cardiovascular: No problems Respiratory: No problems Gastrointestinal: No problems Genitourinary: No problems Musculoskeletal: No problems Neurological: No problems Skin: No problems Vital Signs - Temperature Temperature: 97.0 F Temperature Source: Temporal Artery Scan - Pulse Pulse Oximetery Pulse Rate: 67 Pulse Assessment Method: Pulse Oximetry - Respirations Respiratory Rate: 14 Oxygen Delivery Method: Room Air - Blood Pressure Right Arm Blood Pressure: 127/67 Blood Pressure Mean: 87 Blood Pressure Source: Automatic Cuff Medical Screen Scoring - Cervical Exam Membranes: Intact - Uterine Contractions Intensity: Mild Resting: Soft to palpation - Assessment - Baby A Baseline FHR: 120 Heart Rate - NICHD Category: Category I (Normal) NST: Reactive Physician Notification - Notification Comment Comment: Pt provided written orders for NST, which stated "May DC home if reactive NST, if having BPP must call with results per Dr. Anderson." Pt only having an NST at this time. Maternal Triage Index - Maternal Triage Index Presenting for scheduled procedure w/no complaint: No - Stat/Priority 1 Stat Priority 1: No - Urgent/Priority 2 Urgent Priority 2: No - Prompt/Priority 3 Prompt Priority 3: No - Non-Urgent/Priority 4 Non-Urgent Priority 4: No - Scheduled/Requesting Priority 5 Scheduled/Requesting Priority 5: Yes Criteria Met for Priority 5: Pt is a with ELENA 11/04/21 here at 34.5 weeks of gestation with a written orders for an NST d/t a hx of gestational HTN. Disposition - Disposition OB Disposition: Discharge to home Discharge Date: 09/28/21 Discharge Time: 19:30 I agree with the RN Medical Screening Exam: Yes Case reviewed; plan agreed upon as documented in EMR&OBIX.: Yes Diagnosis: GESTATIONAL HTN W/O SIGNIFICANT PROTEINURIA, THIRD TRIMESTER
== END | disposition home or self-care (01) ==
LOC: FBPOP 19:03
PROVIDERS: ATTEND Obstetrics & Gynecology
DX: O13.3 Gestational [pregnancy-induced] hypertension without significant proteinuria, third trimester (principal); Z3A.34 34 weeks gestation of pregnancy; Z88.2 Allergy status to sulfonamides
CPT/HCPCS: 59025

== ENCOUNTER → 2021-09-28 | Outpatient (CLI) | payer MEDICAID | END | disposition home or self-care (01) | LOC: RADUSWWP 19:03 | PROVIDERS: ATTEND Obstetrics & Gynecology | DX: Z53.9 Procedure and treatment not carried out, unspecified reason (principal) ==

== ENCOUNTER 2021-10-03 10:42 | Outpatient (CLI) | payer MEDICAID ==
--- NOTE | 2021-10-03 13:06 | US ---
EXAMINATION TYPE: US OB BPP wo non-stress DATE OF EXAM: 10/03/2021 COMPARISON: NONE CLINICAL HISTORY: Gestational HTN. NST EXAM PERFORMED: Transabdominal (TA) BPP PARAMETERS: PRESENTATION: Vertex LIE: Longitudinal?? HEART RATE: 120 bpm RHYTHM: Normal DEANGELO: 19.9cm DIAPHRAGM IMAGED: yes BPP SCORIN. Breathin (1 episode of breathing of 30 second duration in 30 minutes of scanning time) 2. Movement: 2 (at least 3 discrete body movements in 30 minutes) 3. Tone: 2 (1 episode of active flexion/extension of limb) 4. DEANGELO: 2 (DEANGELO index > 5cm) TOTAL SCORE: 8 / 8
[2021-10-03 13:36] VITALS: BP 131/78; PULSE 96; RESP 16; TEMP 36.1
== END 2021-10-03 13:06 | disposition home or self-care (01) ==
LOC: FBPOP 10:42
PROVIDERS: ATTEND Obstetrics & Gynecology
DX: O13.3 Gestational [pregnancy-induced] hypertension without significant proteinuria, third trimester (principal); Z3A.35 35 weeks gestation of pregnancy; Z87.891 Personal history of nicotine dependence; Z88.2 Allergy status to sulfonamides
CPT/HCPCS: 59025; 76819; 99213

== ENCOUNTER 2021-10-07 15:15 | Outpatient (CLI) | payer MEDICAID | END 2021-10-07 16:37 | disposition home or self-care (01) | LOC: FBPOP 15:15 | PROVIDERS: ATTEND Obstetrics & Gynecology | DX: O13.3 Gestational [pregnancy-induced] hypertension without significant proteinuria, third trimester (principal); Z3A.36 36 weeks gestation of pregnancy; Z88.2 Allergy status to sulfonamides; Z79.891 Long term (current) use of opiate analgesic | CPT/HCPCS: 59025; 99213 ==

== ENCOUNTER 2021-10-10 15:10 | Outpatient (CLI) | payer MEDICAID | END 2021-10-10 15:45 | disposition home or self-care (01) | LOC: FBPOP 15:10 | PROVIDERS: ATTEND Obstetrics & Gynecology | DX: O13.3 Gestational [pregnancy-induced] hypertension without significant proteinuria, third trimester (principal); Z3A.36 36 weeks gestation of pregnancy; Z88.2 Allergy status to sulfonamides; Z87.891 Personal history of nicotine dependence | CPT/HCPCS: 59025 ==

== ENCOUNTER → 2021-10-10 | Outpatient (CLI) | payer MEDICAID ==
--- NOTE | 2021-10-10 16:07 | US ---
EXAMINATION TYPE: US OB BPP wo non-stress DATE OF EXAM: 10/10/2021 COMPARISON: 10/03/2021 CLINICAL HISTORY: 31-year-old female O13.9 GESTATIONAL HTN. Hx preeclampsia with previous EXAM PERFORMED: Transabdominal (TA). Real-time sonographic assessment by the airset caster. FINDINGS: BPP PARAMETERS: PRESENTATION: Vertex HEART RATE: 135 bpm RHYTHM: Normal DEANGELO: 13.3 cm DIAPHRAGM IMAGED: yes BPP SCORIN. Breathin (1 episode of breathing of 30 second duration in 30 minutes of scanning time) 2. Movement: 2 (at least 3 discrete body movements in 30 minutes) 3. Tone: 2 (1 episode of active flexion/extension of limb) 4. DEANGELO: 2 (DEANGELO index > 5cm) IMPRESSION: TOTAL SCORE: 8 / 8
--- NOTE | 2021-10-10 17:29 | US ---
EXAMINATION TYPE: US OB >= 14 wk fetus DATE OF EXAM: 10/10/2021 COMPARISON: 09/19/2021 CLINICAL HISTORY: 31-year-old female O13.9 GESTATIONAL HTN, assess Growth TECHNIQUE: Transabdominal (TA) GESTATIONAL AGE / DATING Physician Established: (36 weeks/3 days) EDC: 11/04/2021 Dates by Current Scan: (35 weeks/6 days) (4 days less growth than expected compared to 09/19/2021) EDC: 11/08/2021 Beta HCG (if available): Not available at this time FINDINGS: SURVEY IUP: Single PLACENTA: Posterior PREVIA: No Previa DEANGELO: 13.3 cm Normal CERVICAL LENGTH (transabdominal: norm > 3.0cm): 3.1 cm BIOMETRY PRESENTATION: Vertex BPD: 8.7 cm 35 weeks / 1 days HC: 31.9 cm 36 weeks / 0 days AC: 32.3 cm 36 weeks / 2 days FL: 7.0 cm 36 weeks / 0 days ESTIMATED WEIGHT IN GRAMS: 2818 grams ESTIMATED WEIGHT IN LBS/OZ: 6 lbs. 3 oz. WEIGHT PERCENTAGE BASED ON ESTABLISHED DATES: 41% HC/AC: 1.0 Normal FL/AC: 22 Normal HEART RATE: 135 bpm RHYTHM: Normal Company Truck [employer] notes: Single live IUP measuring 35 weeks 6 days. IMPRESSION: 1. Single live intrauterine with established gestational age of 36 weeks 3 days. Current ul trasound biometry is concordant (35 weeks 6 days) though with 4 days less growth than expected compar ed to 09/19/2021. EFW is 41% versus 46%, previously. 2. Cervical length is at the lower limits of normal at 3.1 cm. Follow-up as indicated.
== END | disposition home or self-care (01) ==
LOC: RADUSWWP 14:25
PROVIDERS: ATTEND Obstetrics & Gynecology
DX: O13.3 Gestational [pregnancy-induced] hypertension without significant proteinuria, third trimester (principal); Z3A.35 35 weeks gestation of pregnancy
CPT/HCPCS: 76805; 76819

== ENCOUNTER → 2021-10-15 | Outpatient (CLI) | payer MEDICAID ==
[2021-10-15 19:41] VITALS: BP 131/85; PULSE 71; RESP 16; TEMP 97
--- NOTE | 2021-10-17 22:24 | P.MSEPDOC ---
Presenting Problems - Arrival Data Date of Arrival on Unit: 10/15/21 Time of Arrival on Unit: 18:54 Mode of Transport: Ambulatory - Complaint OB-Reason for Admission/Chief Complaint: NST Medical History - Information : 2 Para: 1 Term: 1 : 0 Abortions: Spontaneous or Elective: 0 Number of Living Children: 1 - Gestational Age Gestational Age by ELENA (wks/days): 37 Weeks and 1 Days Review of Systems - Review of Systems Constitutional: No problems Breast: No problems ENT: No problems Cardiovascular: No problems Respiratory: No problems Gastrointestinal: No problems Genitourinary: No problems Musculoskeletal: No problems Neurological: No problems Skin: No problems Vital Signs - Temperature Temperature: 97.0 F Temperature Source: Temporal Artery Scan - Pulse Pulse Oximetery Pulse Rate: 71 Pulse Assessment Method: Pulse Oximetry - Respirations Respiratory Rate: 16 Oxygen Delivery Method: Room Air O2 Sat by Pulse Oximetry: 97 - Blood Pressure Right Arm Blood Pressure: 131/85 Blood Pressure Mean: 100 Blood Pressure Source: Automatic Cuff Medical Screen Scoring - Assessment - Baby A Baseline FHR: 115 Heart Rate - NICHD Category: Category I (Normal) NST: Reactive Physician Notification - Notification Comment Comment: Written order states, "May DC home if reactive NST, if having BPP must call with resultsper Dr. Anderson." Maternal Triage Index - Maternal Triage Index Presenting for scheduled procedure w/no complaint: No - Stat/Priority 1 Stat Priority 1: No - Urgent/Priority 2 Urgent Priority 2: No - Prompt/Priority 3 Prompt Priority 3: No - Non-Urgent/Priority 4 Non-Urgent Priority 4: No - Scheduled/Requesting Priority 5 Scheduled/Requesting Priority 5: Yes Criteria Met for Priority 5: Pt is a with ELENA 11/04/21 here at 37.1 weeks of gestation with written. orders for an NST. 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 Pt denies any concerns at this time. RN discussed POC with pt, who verbalized. understanding and agreement. Disposition - Disposition OB Disposition: Discharge to home Discharge Date: 10/15/21 Discharge Time: 19:30 I agree with the RN Medical Screening Exam: Yes Case reviewed; plan agreed upon as documented in EMR&OBIX.: Yes Diagnosis: SUPERVISION OF HIGH RISK , UNSP, THIRD TRIMESTER
== END ==
LOC: FBPOP 18:54
PROVIDERS: ATTEND Obstetrics & Gynecology
DX: O13.3 Gestational [pregnancy-induced] hypertension without significant proteinuria, third trimester (principal); Z3A.37 37 weeks gestation of pregnancy; Z88.2 Allergy status to sulfonamides; Z87.891 Personal history of nicotine dependence
CPT/HCPCS: 59025

== ENCOUNTER → 2021-10-19 | Outpatient (CLI) | payer MEDICAID ==
[2021-10-19 20:39] VITALS: BP 134/87; PULSE 67; RESP 16; TEMP 97
--- NOTE | 2021-10-19 21:33 | US ---
EXAMINATION TYPE: US OB BPP wo non-stress DATE OF EXAM: 10/19/2021 COMPARISON: NONE CLINICAL HISTORY: scheduled. EXAM PERFORMED: Transabdominal (TA) BPP PARAMETERS: PRESENTATION: LIE: vertex?? HEART RATE: 120 bpm RHYTHM: Normal DEANGELO: 8, notified nurse DIAPHRAGM IMAGED: yes BPP SCORIN. Breathin (1 episode of breathing of 30 second duration in 30 minutes of scanning time) 2. Movement: 2 (at least 3 discrete body movements in 30 minutes) 3. Tone: 2 (1 episode of active flexion/extension of limb) 4. DEANGELO: 2 (DEANGELO index > 5cm) TOTAL SCORE: 8 / 8 Impression Normal biophysical profile.
--- NOTE | 2021-10-22 07:33 | P.MSEPDOC ---
Presenting Problems - Arrival Data Date of Arrival on Unit: 10/19/21 Time of Arrival on Unit: 19:02 Mode of Transport: Ambulatory - Complaint OB-Reason for Admission/Chief Complaint: NST Medical History - Information : 2 Para: 1 Term: 1 : 0 Abortions: Spontaneous or Elective: 0 Number of Living Children: 1 - Gestational Age Gestational Age by ELENA (wks/days): 37 Weeks and 5 Days - History Complications: Other Comment: Gestational hypertension Review of Systems - Review of Systems Constitutional: No problems Breast: No problems ENT: No problems Cardiovascular: No problems Respiratory: No problems Gastrointestinal: No problems Genitourinary: No problems Musculoskeletal: No problems Neurological: No problems Skin: No problems Vital Signs - Temperature Temperature: 97.0 F Temperature Source: Oral - Pulse Right Brachial Pulse Rate: 67 Pulse Assessment Method: Automatic Cuff - Respirations Respiratory Rate: 16 Oxygen Delivery Method: Room Air - Blood Pressure Right Arm Blood Pressure: 134/87 Blood Pressure Mean: 102 Medical Screen Scoring - Assessment - Baby A Baseline FHR: 135 Heart Rate - NICHD Category: Category I (Normal) NST: Reactive Maternal Triage Index - Maternal Triage Index Presenting for scheduled procedure w/no complaint: Yes - Scheduled/Requesting Priority 5 Scheduled/Requesting Priority 5: Yes Criteria Met for Priority 5: NST Disposition - Disposition OB Disposition: Discharge to home I agree with the RN Medical Screening Exam: Yes Case reviewed; plan agreed upon as documented in EMR&OBIX.: Yes Diagnosis: SUPERVISION OF OTHER HIGH RISK PREGNANCIES, THIRD TRIMESTER
== END | disposition home or self-care (01) ==
LOC: FBPOP 19:02
PROVIDERS: ATTEND Obstetrics & Gynecology
DX: O09.893 Supervision of other high risk pregnancies, third trimester (principal); Z3A.37 37 weeks gestation of pregnancy; Z88.2 Allergy status to sulfonamides; Z87.891 Personal history of nicotine dependence
CPT/HCPCS: 59025; 76819

== ENCOUNTER 2021-10-25 10:43 | Outpatient (CLI) | payer MEDICAID ==
--- NOTE | 2021-10-25 12:29 | US ---
EXAMINATION TYPE: US OB BPP wo non-stress DATE OF EXAM: 10/25/2021 COMPARISON: NONE CLINICAL HISTORY: gestational HTN, hx preeclampsia. EXAM PERFORMED: Transabdominal (TA) BPP PARAMETERS: PRESENTATION: Vertex LIE: Longitudinal?? HEART RATE: 133 bpm RHYTHM: Normal DEANGELO: 8.4 DIAPHRAGM IMAGED: Yes BPP SCORIN. Breathin (1 episode of breathing of 30 second duration in 30 minutes of scanning time) 2. Movement: 2 (at least 3 discrete body movements in 30 minutes) 3. Tone: 2 (1 episode of active flexion/extension of limb) 4. DEANGELO: 2 (DEANGELO index > 5cm) TOTAL SCORE: 6 / 8 1. Biophysical profile scoring 6 out of 8. No points were scored for breathing motion during this exa m. 2. Cardiac activity measures 133 bpm.
--- NOTE | 2021-10-26 12:10 | P.MSEPDOC ---
Presenting Problems - Arrival Data Date of Arrival on Unit: 10/25/21 Time of Arrival on Unit: 10:43 Mode of Transport: Ambulatory - Complaint OB-Reason for Admission/Chief Complaint: NST, Other Comment: pt here for 2 times a week nst, and weekly BPP Medical History - Gestational Age Gestational Age by ELENA (wks/days): 38 Weeks and 4 Days - History Complications: Prior Review of Systems - Review of Systems Constitutional: No problems Breast: No problems ENT: No problems Cardiovascular: No problems Respiratory: No problems Gastrointestinal: No problems Genitourinary: No problems Musculoskeletal: No problems Neurological: No problems Skin: No problems Physician Notification - Notification Comment Comment: pt here for 2 times a week nst, and weekly BPP, results 10/02 BPP, Dr. Anderson notified, orders to discharge pt home, pt scheduled thursday for 0800 section Maternal Triage Index - Maternal Triage Index Presenting for scheduled procedure w/no complaint: Yes - Scheduled/Requesting Priority 5 Scheduled/Requesting Priority 5: Yes Criteria Met for Priority 5: pt here for 2 times a week nst, and weekly BPP Disposition - Disposition OB Disposition: Triage, Discharge to home, Written follow up instructions reviewed I agree with the RN Medical Screening Exam: Yes Case reviewed; plan agreed upon as documented in EMR&OBIX.: Yes Diagnosis: SUPERVISION OF HIGH RISK , UNSP, THIRD TRIMESTER
== END 2021-10-25 12:30 | disposition home or self-care (01) ==
LOC: FBPOP 10:43
PROVIDERS: ATTEND Obstetrics & Gynecology
DX: O09.93 Supervision of high risk pregnancy, unspecified, third trimester (principal); Z3A.38 38 weeks gestation of pregnancy; Z88.2 Allergy status to sulfonamides; Z87.891 Personal history of nicotine dependence
CPT/HCPCS: 59025; 76819

== ENCOUNTER 2021-10-29 08:35 | Outpatient (CLI) | payer MEDICAID ==
[2021-10-29 09:39] VITALS: BP 122/64; PULSE 72; RESP 16; TEMP 97.1
== END 2021-10-29 09:27 | disposition home or self-care (01) ==
LOC: FBPOP 08:35
PROVIDERS: ATTEND Obstetrics & Gynecology
DX: O13.3 Gestational [pregnancy-induced] hypertension without significant proteinuria, third trimester (principal); Z3A.39 39 weeks gestation of pregnancy; Z88.2 Allergy status to sulfonamides; Z87.891 Personal history of nicotine dependence
CPT/HCPCS: 59025

== ENCOUNTER 2021-10-30 06:11 | Inpatient (IN) | payer MEDICAID ==
--- NOTE | 2021-10-29 19:42 | P.HPOB ---
History of Present Illness H&P Date: 10/29/21 Chief Complaint: Repeat section This is a 31 y.o. female, 2, para 1, with an estimated date of confinement of 11/04/2021, estimated gestational age of 39-2/7 weeks, who presents for scheduled repeat section. She has been seen by MFM and cardiology during her pregancy due to muscular dystrophy and history of ventricular tachycardia with loop recorder. course has been uncomplicated. Labs: Blood type-AB+ Antibody screen-neg HIV-NR Random glucose-113 Hemoglobin-12.2 Hepatitis B surface antigen-neg Rubella-immune Syphilis antibody-neg 1 hr. GTT-141; 3 hr. GTT-WNL GBS-positive OB Hx: . History of 1 section due to gestational htn remote from delivery Deaf Teacher Hx: Hx chlamydia treated in 2007. Social Hx: Single. Works as [employer]. Review of Systems Constitutional: Denies chills, Denies fever Eyes: denies blurred vision, denies pain Ears, nose, mouth and throat: Denies headache, Denies sore throat Cardiovascular: Denies chest pain, Denies shortness of breath Respiratory: Denies cough Gastrointestinal: Reports abdominal pain (irregular ctxs) Genitourinary: Reports pelvic pain, Reports Musculoskeletal: Reports low back pain Integumentary: Denies pruritus, Denies rash Neurological: Denies numbness, Denies weakness Endocrine: Denies fatigue Past Medical History Past Medical History: No Reported History History of Any Multi-Drug Resistant Organisms: MRSA Date of last positivie culture/infection: 2007 MDRO Source:: left leg wound Past Surgical History: Section Additional Past Surgical History / Comment(s): pt states had sinus surgery in 2006 Past Anesthesia/Blood Transfusion Reactions: No Reported Reaction Past Psychological History: No Psychological Hx Reported Smoking Status: Never smoker Past Alcohol Use History: None Reported Past Drug Use History: None Reported - Past Family History Father History Unknown: Yes Family Medical History: Hypertension Medications and Allergies Home Medications Medication Instructions Recorded Confirmed Type Adp-Sqgq-Mbzsy Acid 1 cap PO DAILY 07/13/16 10/30/21 History [-U Capsule (formulary)] Aspirin [Adult Low Dose Aspirin EC] 81 mg PO DAILY 09/13/21 10/30/21 History Metoprolol Succinate (ER) [Toprol 25 mg PO DAILY 09/13/21 10/30/21 History Xl] Allergies Allergy/AdvReac Type Severity Reaction Status Date / Time sulfamethoxazole AdvReac Rash/Hives Verified 10/29/21 08:57 [From Bactrim] trimethoprim [From Bactrim] AdvReac Rash/Hives Verified 10/29/21 08:57 Exam Osteopathic Statement: *. No significant issues noted on an osteopathic structural exam other than those noted in the History and Physical/Consult. HEENT: within normal limits Heart: regular rate and rhythm Lungs: clear to auscultation bilaterally Abdomen: , non-tender Cervix: closed/50%/-3 heart tones: 120's by doppler Extremities: neg. Jyothi's Results Result Diagrams: 10/30/21 06:45 Assessment and Plan (1) Previous delivery affecting Current Visit: No Status: Acute Code(s): O34.219 - MATERNAL CARE FOR UNSP TYPE SCAR FROM PREVIOUS DEL SNOMED Code(s): 850723818 (2) 39 weeks gestation of Current Visit: No Status: Acute Code(s): Z3A.39 - 39 WEEKS GESTATION OF SNOMED Code(s): 59739271 Plan: Proceed with repeat section. I have discussed the risks, benefits, and alternative therapies for the above- mentioned procedure and for both sedation/anesthesia as well as necessary blood products administration, if indicated, as they pertain to this patient. The patient has indicated her understanding and acceptance of the risks and procedures discussed.
[2021-10-30] MEDS ORDERED: CITRIC ACID-SODIUM CITRATE 15 ML CUP PO ONE (06:29)
[2021-10-30] MEDS ORDERED: LACTATED RINGERS 1,000 ML IV ONE (06:29)
[2021-10-30] MEDS ORDERED: LIDOCAINE 1% (10MG/ML) FOR IV START INTRADERMA PRN (06:29)
[2021-10-30 07:04] LABS: Basophils % (A) 1 %; Eosinophils # (A) 0.2 k/uL (0-0.7); Eosinophils % (A) 2 %; HCT 34.8 % (34.0-46.0); HGB 11.6 gm/dL (11.4-16.0); Lymphocytes # (A) 1.9 k/uL (1.0-4.8); Lymphocytes % (A) 24 %; MCHC 33.5 g/dL (31.0-37.0); MCV 86.6 fL (80.0-100.0); Mean Platelet Volume 8.7; Monocytes # (A) 0.6 k/uL (0-1.0); Monocytes % (A) 7 %; Neutrophils # (A) 5.1 k/uL (1.3-7.7); Neutrophils % (A) 63 %; Platelet Count 205 k/uL (150-450); RBC 4.01 m/uL (3.80-5.40); RDW 14.1 % (11.5-15.5); WBC 8.2 k/uL (3.8-10.6)
[2021-10-30] MEDS ORDERED: ONDANSETRON 4 MG/2 ML VIAL ONE (07:58)
[2021-10-30] MEDS ORDERED: OXYTOCIN 30 UNITS/500 ML NS BAG IV ONE (07:58)
[2021-10-30] MEDS ORDERED: ePHEDrine 50 MG/ML 1 ML VIAL ONE (07:58)
[2021-10-30] MEDS ORDERED: KETOROLAC 15 MG/ML 1 ML VIAL ONE (07:58)
[2021-10-30] MEDS ORDERED: NALBUPHINE 10 MG/ML (1 ML AMP) ONE (07:58)
[2021-10-30] MEDS ORDERED: MORPHINE SULFATE (PF) 0.3 MG/0.3 ML SYR ONE (07:58)
--- NOTE | 2021-10-30 08:37 | P.OP ---
Date of Procedure: 10/30/21 Preoperative Diagnosis: 1. Intrauterine at 39-2/7 weeks. 2. History of previous section. 3. Muscular dystrophy. Postoperative Diagnosis: Same Procedure(s) Performed: Repeat low transverse section Anesthesia: spinal (Duramorph) Surgeon: Ce Anderson Gas Operations Analyst #1: James Luna Estimated Blood Loss (ml): 350 Pathology: other (Placenta) Condition: stable Disposition: floor Indications for Procedure: This is a 31-year-old female 2 para 1 at 39-2/7 weeks who presented for scheduled repeat section. She does have a history of gestational hypertension in her last but has not had any hypertension during this . She does have a history of muscular dystrophy and has been followed by maternal- medicine and cardiology during this . I have discussed the risks, benefits, and alternative therapies for the above- mentioned procedure and for both sedation/anesthesia as well as necessary blood products administration, if indicated, as they pertain to this patient. The patient has indicated her understanding and acceptance of the risks and procedures discussed. Operative Findings: A viable male infant is noted in the vertex presentation with scores of 8 at 1 minute and 9 at 5 minutes and infant weight of 6 lbs. 14 oz. Normal uterus tubes and ovaries are noted. Description of Procedure: The patient is taken to the operating room where she is placed in the dorsal supine position with leftward tilt after spinal Duramorph anesthesia is given. She is prepped and draped in the normal sterile fashion. Skin was tested and found to be adequately anesthetized. A Pfannenstiel skin incision was made with a scalpel through the previous laparotomy scar. A second knife was used to carry the incision down to the underlying layer of fascia. The fascia was nicked in the midline with a scalpel and then extended laterally bilaterally with Wallis scissors. The anterior lip of the fascia was grasped with 2 Isabel c lamps and then dissected off the underlying rectus muscle in the midline with Wallis scissors. The inferior aspect of the fascial incision was grasped with 2 Isabel clamps and dissected off the underlying rectus muscle and the midline with Wallis scissors. Next the peritoneum layer was tented up with 2 hemostats and then entered sharply with the scalpel. The incision is extended superiorly and inferiorly with Metzenbaum scissors. Next a DeLee retractor is placed. The vesicouterine peritoneum is entered sharply with Metzenbaum scissors and extended laterally bilaterally with Metzenbaum scissors and then the bladder flap is pushed inferiorly. The lower uterine segment is incised in transverse fashion with the scalpel and then bluntly entered with a hemostat. Clear fluid is noted. The incision was then extended laterally bilaterally with 2 fingers. Next the 's head is delivered through the incision. Nose and mouth are bulb suctioned. The remainder of the is easily delivered and placed on mother's abdomen. Cord is clamped and cut. is taken to warmer by nursing staff. Uterine fundus is gently massaged and placenta is delivered manually. Uterus is exteriorized and cleared of all clots and debris. Uterine incision is closed with 0 Vicryl suture in a running locked fashion. A second layer of 0 Vicryl suture is used in a running fashion for hemostasis. Once adequate hemostasis as assured, the vesicouterine peritoneum is reapproximated with 2-0 Vicryl suture in a running fashion. Posterior cul-de-sac is suctioned of all clots and debris. Uterus is returned to the abdomen. Incision is noted to be hemostatic. Peritoneal layer is closed with 0 Vicryl suture in a running fashion. Muscle layer is reapproximated with 0 Vicryl suture in interrupted fashion. Fascia layer is then closed with 0 PDS suture with 2 sutures meeting in the midline and the knots buried in either side and in the midline. The subcutaneous tissue was then closed with 2-0 Vicryl suture. Skin layer was then closed with edgar. All sponge and needle counts are correct. The patient is taken to recovery room in stable condition.
[2021-10-30] MEDS ORDERED: METOCLOPRAMIDE 5 MG/ML 2 ML VIAL IVP PRN (08:45)
[2021-10-30] MEDS ORDERED: ONDANSETRON 4 MG/2 ML VIAL IVP PRN (08:45)
[2021-10-30] MEDS ORDERED: diphenhydrAMINE 50 MG CAP PO PRN (08:45)
[2021-10-30] MEDS ORDERED: HYDROmorphone 1 MG/ML 1 ML SYRINGE IVP PRN (08:45)
[2021-10-30] MEDS ORDERED: OXYTOCIN 30 UNITS/500 ML NS 30 UNIT in SALINE 1 500ML.BAG IV SCH (08:45)
[2021-10-30] MEDS ORDERED: ZOLPIDEM 5 MG TAB PO PRN (08:45)
[2021-10-30] MEDS ORDERED: diphenhydrAMINE 50 MG/ML 1 ML VIAL IVP PRN ×2 (08:45)
[2021-10-30] MEDS ORDERED: SIMETHICONE 80 MG CHEWABLE PO PRN (08:45)
[2021-10-30] MEDS ORDERED: LANOLIN CREAM 5 GM TUBE TOPICAL PRN (08:45)
[2021-10-30] MEDS ORDERED: NALOXONE 0.4 MG/ML 1 ML VIAL IV PRN (08:45)
[2021-10-30] MEDS ORDERED: HYDROmorphone 0.5 MG/0.5 ML SYRINGE IVP PRN (08:45)
[2021-10-30] MEDS ORDERED: diphenhydrAMINE 25 MG CAP PO PRN (08:45)
[2021-10-30] MEDS ORDERED: METOPROLOL SUCCINATE (ER) 25 MG TAB.ER.24H PO SCH (09:00)
[2021-10-30] MEDS: PRENATAL VIT-IRON-FOLIC ACID 1 EACH TABLET PO SCH (09:07)
[2021-10-30] MEDS: SENNOSIDES-DOCUSATE SODIUM 1 EACH TAB PO SCH ×2 (09:07→19:41)
[2021-10-30] MEDS: ACETAMINOPHEN IV (For NPO) 1,000 MG in EMPTY BAG 1 BAG IVPB SCH ×2 (10:50→17:59)
[2021-10-30] MEDS: LACTATED RINGERS 1,000 ML IV SCH ×2 (10:52→14:03)
[2021-10-30] MEDS: ACETAMINOPHEN TAB 500 MG TAB PO SCH ×2 (13:07→18:02)
[2021-10-30] MEDS: KETOROLAC 15 MG/ML 1 ML VIAL IVP SCH ×2 (14:03→19:41)
[2021-10-30] MEDS: IBUPROFEN 600 MG TAB PO SCH ×2 (14:07→20:05)
[2021-10-30] MEDS: METOPROLOL SUCCINATE (ER) 25 MG TAB.ER.24H PO SCH (19:42)
[2021-10-31] MEDS: ACETAMINOPHEN TAB 500 MG TAB PO SCH ×5 (00:25→23:29)
[2021-10-31] MEDS: IBUPROFEN 600 MG TAB PO SCH ×4 (02:31→21:07)
[2021-10-31] MEDS: LACTATED RINGERS 1,000 ML IV SCH (02:31)
[2021-10-31] MEDS: KETOROLAC 15 MG/ML 1 ML VIAL IVP SCH ×2 (03:01→21:52)
[2021-10-31 07:21] LABS: Basophils % (A) 0 %; Eosinophils # (A) 0.1 k/uL (0-0.7); Eosinophils % (A) 1 %; HCT 29.8 % (34.0-46.0); HGB 11.1 gm/dL (11.4-16.0); Lymphocytes # (A) 1.5 k/uL (1.0-4.8); Lymphocytes % (A) 14 %; MCH 32.6 pg (25.0-35.0); MCHC 37.3 g/dL (31.0-37.0); MCV 87.5 fL (80.0-100.0); Monocytes # (A) 0.5 k/uL (0-1.0); Monocytes % (A) 5 %; Neutrophils % (A) 77 %; Platelet Count 175 k/uL (150-450); RDW 14.5 % (11.5-15.5); WBC 10.4 k/uL (3.8-10.6)
[2021-10-31] MEDS: SENNOSIDES-DOCUSATE SODIUM 1 EACH TAB PO SCH ×2 (07:57→19:39)
--- NOTE | 2021-10-31 08:13 | P.PN ---
Progress Note - Text Date: 10/31/2021 Time: 07:07 The patient is status post section Vital signs stable VAS: 0-10 Patient has no complaints of pain. The patient incurred some minimal itching yesterday, this itching is now subsiding. Pain meds to be managed by service.
--- NOTE | 2021-10-31 09:41 | P.PNOBGPC ---
Subjective - Subjective Principal diagnosis: Status post repeat section postoperative day #1 Interval history: Patient is doing well. She is ambulating. She is passing flatus but no bowel movement yet. She is urinating. Pain is fairly well controlled at this time. Patient reports: Reports appetite normal, Reports voiding normally, Reports pain well controlled, Reports ambulating normally [place]: doing well Objective - Vital Signs Latest vital signs: Vital Signs Temp Pulse Resp BP Pulse Ox 10/31/21 08:00 98.1 F 73 15 118/77 10/31/21 03:44 98.7 F 77 18 102/66 96 10/31/21 00:00 98.4 F 81 16 114/73 96 10/30/21 20:05 97.7 F 75 18 122/71 98 10/30/21 16:15 98.0 F 83 15 111/68 96 10/30/21 12:00 97.8 F 67 16 107/68 96 10/30/21 10:40 97.3 F L 67 16 119/61 100 10/30/21 10:10 64 16 138/73 98 Intake and Output 10/30/21 10/31/21 10/31/21 22:59 06:59 14:59 Intake Total 500 Output Total 350 300 Balance 150 -300 Intake: Oral 500 Output: Urine 350 Uretheral (Bell) 350 Estimated Blood Loss 300 - Exam Extremities: Present: normal. Absent: tenderness Abdomen: Present: normal appearance, soft (Positive bowel sounds 4). Absent: distention, tenderness Incision: Present: normal, dry, intact. Absent: erythematous Uterus: Present: normal, firm. Absent: tenderness - Labs Labs: Abnormal Lab Results - Last 24 Hours (Table) 10/31/21 Range/Units 06:51 RBC 3.40 L (3.80-5.40) m/uL Hgb 11.1 L (11.4-16.0) gm/dL Hct 29.8 L (34.0-46.0) % MCHC 37.3 H (31.0-37.0) g/dL Neutrophils # 8.0 H (1.3-7.7) k/uL Assessment and Plan Assessment: Status post repeat low transverse section postoperative day #1 (1) Previous delivery affecting Current Visit: No Status: Acute Code(s): O34.219 - MATERNAL CARE FOR UNSP TYPE SCAR FROM PREVIOUS DEL SNOMED Code(s): 173929993 (2) 39 weeks gestation of Current Visit: No Status: Acute Code(s): Z3A.39 - 39 WEEKS GESTATION OF SNOMED Code(s): 65131302 Plan: Continue with postoperative care today. Will advance diet as tolerated.
[2021-10-31] MEDS: PRENATAL VIT-IRON-FOLIC ACID 1 EACH TABLET PO SCH (11:40)
[2021-10-31] MEDS: METOPROLOL SUCCINATE (ER) 25 MG TAB.ER.24H PO SCH (19:39)
[2021-11-01 00:10] VITALS: RESP 18
[2021-11-01] MEDS: IBUPROFEN 600 MG TAB PO SCH ×2 (03:22→08:57)
[2021-11-01] MEDS: ACETAMINOPHEN TAB 500 MG TAB PO SCH (05:23)
[2021-11-01 08:49] VITALS: BP 129/81; PULSE 78; TEMP 97.8
--- NOTE | 2021-11-01 08:56 | P.DS ---
Providers Date of admission: 10/30/21 06:11 Expected date of discharge: 11/01/21 Attending physician: Ce Anderson Primary care physician: Stated None - Discharge Diagnosis(es) (1) Previous delivery affecting Current Visit: No Status: Acute (2) 39 weeks gestation of Current Visit: No Status: Acute Hospital Course: This is a 31-year-old female 2 para 1 at 39-2/7 weeks who presented for repeat section. She underwent a repeat low transverse section under spinal Duramorph anesthesia on 10/30/2021 and delivered a viable male with scores of 8 at 1 minute and 9 at 5 minutes and infant weight is 6 lbs. 14 oz. Her postoperative and course have been essentially uncomplicated. Lochia is decreasing. Her pain is fairly well controlled now. She is passing flatus but no bowel movement yet. She is ambulating. 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 She would like a breast pump. Vital signs are stable. Abdomen is soft with positive bowel sounds 4. Incision is clean dry and intact with edgar in place. Extremities show negative Homans. Impression is status post repeat low transverse section postoperative day #2. Plan is to discharge home today. Routine postoperative and instructions are given. She is advised follow-up in the office in approximately one week for a postoperative check and in 6 weeks for check. She will be given a prescription for breast pump. She also will be given prescriptions for ibuprofen and oxycodone. She has been counseled regarding opioid use has signed a consent form. She is advised to call the office if she has any further questions or concerns prior to her appointment time. [place] will be removed and Steri-Strips placed prior to discharge. Procedures: Repeat low transverse section on 10/30/2021 Patient Condition at Discharge: Stable Plan - Discharge Summary Discharge Rx Participant: No New Discharge Prescriptions: New Ibuprofen [Motrin] 600 mg PO Q6H #60 tab oxyCODONE HCL [OxyIR] 5 mg PO Q4HR PRN #12 tab PRN Reason: Pain Scale 4 - 6 Continue Qij-Pxvp-Cnvvs Acid [-U Capsule (formulary)] 1 cap PO DAILY Metoprolol Succinate (ER) [Toprol XL] 25 mg PO DAILY Discontinued Aspirin [Adult Low Dose Aspirin EC] 81 mg PO DAILY Discharge Medication List Vkn-Qaeh-Rsrgz Acid [-U Capsule (formulary)] 1 cap PO DAILY 07/13/16 [History] Metoprolol Succinate (ER) [Toprol XL] 25 mg PO DAILY 09/13/21 [History] Ibuprofen [Motrin] 600 mg PO Q6H #60 tab 11/01/21 [Rx] oxyCODONE HCL [OxyIR] 5 mg PO Q4HR PRN #12 tab 11/01/21 [Rx] Follow up Appointment(s)/Referral(s): Ce Anderson DO [Doctor of Osteopathic Medicine] - 12/11/21 3:45 pm (Post Op appointment 11-11-2021 at 09:00 a.m.) Activity/Diet/Wound Care/Special Instructions: Instructions 1. Do not begin any exercise program for 3 weeks. 2. Do not resume sexual relations for 3 weeks or longer if uncomfortable. 3. You may take tub baths or showers at any time. 4. You may use tampons if desired after 3 weeks. 5. Keep the area of episiotomy (stitches) clean and dry. 6. If you are not nursing, wear a good fitting, supportive bra during the day and limit fluid intake for at least 1 week to prevent breast engorgement. 7. Call the office, [phone], within the next week to make appointment for your 6 week checkup if it has not already been made. 8. Report any of the following occurrences to the doctor promptly: a. Heavy, excessive bleeding b. Chills, fever c. Burning or frequency of urination d. Pain or redness and breasts if nursing e. Increasing pain or swelling in episiotomy (stitches). In addition to the above instructions, the following additional should be followed: 1. No heavy lifting or straining (exercising) until after 6 week checkup. 2. Keep abdominal incision clean and dry: You may wear a dressing if more comfortable. 3. Make office appointment for 10 days after going home or as instructed by her doctor. Discharge Disposition: HOME SELF-CARE
[2021-11-01] MEDS: SENNOSIDES-DOCUSATE SODIUM 1 EACH TAB PO SCH (08:57)
[2021-11-01] MEDS: PRENATAL VIT-IRON-FOLIC ACID 1 EACH TABLET PO SCH (08:58)
== END 2021-11-01 12:00 | disposition home or self-care (01) | DRG 787 ==
LOC: 4FBP 06:11
PROVIDERS: ADMIT Obstetrics & Gynecology; ATTEND Obstetrics & Gynecology
PROC: 10D00Z1 Extraction of Products of Conception, Low, Open Approach (ICD-10-PCS; principal; 2021-10-30 08:00)
DX: O34.211 Maternal care for low transverse scar from previous cesarean delivery (principal); O99.354 Diseases of the nervous system complicating childbirth; O99.824 Streptococcus B carrier state complicating childbirth; Z37.0 Single live birth; Z3A.39 39 weeks gestation of pregnancy; O99.73 Diseases of the skin and subcutaneous tissue complicating the puerperium; L29.9 Pruritus, unspecified; Z79.82 Long term (current) use of aspirin; Z82.49 Family history of ischemic heart disease and other diseases of the circulatory system; G71.00 Muscular dystrophy, unspecified; Z88.2 Allergy status to sulfonamides; Z88.8 Allergy status to other drugs, medicaments and biological substances; Z86.14 Personal history of Methicillin resistant Staphylococcus aureus infection; Z88.1 Allergy status to other antibiotic agents
CPT/HCPCS: 85025; 86850; 86900; 86901; 88307

== ENCOUNTER → 2023-07-20 | Outpatient (CLI) | payer BC ==
[2023-07-20 19:07] LABS: T4, Free (Free Thyroxine) 1.09 ng/dL (0.80-1.80)
== END | disposition home or self-care (01) ==
LOC: LABWHC1 10:00
PROVIDERS: ATTEND Internal Medicine Interventional Cardiology
DX: E03.9 Hypothyroidism, unspecified (principal)
CPT/HCPCS: 36415; 84439; 84443

== ENCOUNTER → 2024-01-15 | Outpatient (CLI) | payer BC ==
--- NOTE | 2024-01-16 12:21 | CA ---
Transthoracic Echo Report Name: Riddhi Lord Age: 33 Gender: F : 1990 Exam Date: 01/15/2024 14:57 Exam Location: [place] [facility] Ht (in): 67 Wt (lb): 210 Ordering Physician: Nonstaff, Physician Attending/Referring Phys: Nonstaff, Physician New Media Strategist Bisi Jeronimo RDCS Procedure CPT: Indications: I49.3 VENTRICULAR PREMATURE DEPOLARIZA Q99.8 Cardiac Hx: Technical Quality: Fair Contrast 1: Total Dose (mL): Contrast 2: Total Dose (mL): MEASUREMENTS (Male / Female) Normal Values 2D ECHO LV Diastolic Diameter PLAX 5.2 cm 4.2 - 5.9 / 3.9 - 5.3 cm LV Systolic Diameter PLAX 3.4 cm IVS Diastolic Thickness 0.7 cm 0.6 - 1.0 / 0.6 - 0.9 cm LVPW Diastolic Thickness 0.6 cm 0.6 - 1.0 / 0.6 - 0.9 cm LV Relative Wall Thickness 0.3 RV Internal Dim ED PLAX 3.6 cm LA Volume 42.0 cm??? 18 - 58 / 22 - 52 cm??? LA Volume Index 19.5 cm???/m??? 16 - 28 cm???/m??? M-MODE Aortic Root Diameter MM 2.6 cm LA Systolic Diameter MM 3.9 cm LA Ao Ratio MM 1.5 AV Cusp Separation MM 2.2 cm DOPPLER AV Peak Velocity 127.3 cm/s AV Peak Gradient 6.5 mmHg AV Mean Velocity 97.7 cm/s AV Mean Gradient 4.0 mmHg AV Velocity Time Integral 23.8 cm LVOT Peak Velocity 95.9 cm/s LVOT Peak Gradient 3.7 mmHg LVOT Velocity Time Integral 16.4 cm MV Area PHT 4.0 cm??? Mitral E Point Velocity 59.9 cm/s Mitral A Point Velocity 85.0 cm/s Mitral E to A Ratio 0.7 MV Deceleration Time 191.1 ms MV E' Velocity 7.0 cm/s Mitral E to MV E' Ratio 8.6 FINDINGS Left Ventricle Normal Left ventricular size, wall thickness, systolic function with no obvious regional wall motion abnormalities. Normal Left ventricular diastolic filling pattern. Left ventricular ejection fraction is estimated at 55-60 %. Right Ventricle Normal right ventricular size and function. Right ventricular systolic pressure within normal limits. Right Atrium Normal right atrial size. Left Atrium Normal left atrial size. Mitral Valve Structurally normal mitral valve. No mitral stenosis, regurgitation or prolapse. Aortic Valve Trileaflet aortic valve. No aortic valve stenosis or regurgitation. Tricuspid Valve Structurally normal tricuspid valve. Trace tricuspid regurgitation. Pulmonic Valve Structurally normal pulmonic valve. Pericardium No pericardial effusion. Aorta Normal size aortic root and proximal ascending aorta. CONCLUSIONS Diagnosis: Frequent PVCs Normal LV size and systolic function Normal RV size and function No significant valvular abnormalities Previewed by: Dr. Pk Null MD (Electronically Signed) Final Date: 16 January 2024 12:20
== END | disposition home or self-care (01) ==
LOC: RADECHMAIN 14:58
PROVIDERS: ATTEND Internal Medicine
DX: I36.1 Nonrheumatic tricuspid (valve) insufficiency (principal); I49.3 Ventricular premature depolarization; Q99.8 Other specified chromosome abnormalities
CPT/HCPCS: 93306

== ENCOUNTER → 2024-05-18 | Outpatient (CLI) | payer BC ==
--- NOTE | 2024-05-18 17:43 | MM ---
Reason for Exam: Screening (asymptomatic). Baseline mammogram. Patient History: Menarche at age 11. First Full-Term at age 26. Currently using Hormonal Contraceptives, starting at age 34. Maternal aunt had breast cancer at or over age 50. Mother had breast cancer under age 50. Last menstrual period: 05/11/2024 Prior Study Comparison: Patient's first Mammogram. No prior studies available for comparison. Tissue Density: The breasts are heterogeneously dense, which may obscure small masses. Findings: Analyzed By CAD. Asymmetric density superior right MLO view middle depth and inferior left MLO view middle depth. These areas may represent superimposition shadow but further evaluation is recommended. Otherwise, no suspicious microcalcification or other discrete abnormality is seen. Overall Assessment: Incomplete: need additional imaging evaluation, BI-RAD 0 Management: Special View Mammogram of both breasts. Diagnostic Breast Ultrasound of both breasts. [facility] will attempt to contact patient to return for supplemental views and ultrasound if indicated. [facility], , 05/18/2024 5:39 PM. Electronically signed and approved by: Tom Grady M.D. Radiologist
== END | disposition home or self-care (01) ==
LOC: RADMAMWWP 15:27
PROVIDERS: ATTEND Obstetrics & Gynecology Obstetrics
DX: Z12.31 Encounter for screening mammogram for malignant neoplasm of breast (principal); Z80.3 Family history of malignant neoplasm of breast; R92.333 Mammographic heterogeneous density, bilateral breasts
CPT/HCPCS: 77063; 77067